=== PATIENT | male | born 1960 | race Caucasian/White ===

== ENCOUNTER → 2016-12-08 | Outpatient (REF) | payer BC ==
[2016-12-08 08:33] LABS: ALBUMIN 3.4 GM/DL (3.2-5.2); ALBUMIN/GLOBULIN RATIO 1.36 (1.00-1.93); ALKALINE PHOSPHATASE 77 U/L (45-117); ALT/SGPT 32 U/L (12-78); ANION GAP 5 MEQ/L (8-16); AST/SGOT 17 U/L (15-37); BILIRUBIN,TOTAL 0.4 MG/DL (0.2-1.0); BLOOD UREA NITROGEN 14 MG/DL (7-18); CALCIUM LEVEL 8.3 MG/DL (8.5-10.1); CARBON DIOXIDE LEVEL 32 MEQ/L (21-32); CHLORIDE LEVEL 105 MEQ/L (98-107); CHOLESTEROL LEVEL 141 MG/DL (<200); CREATININE FOR GFR 1.01 MG/DL (0.70-1.30); GLOMERULAR FILTRATION RATE > 60.0 (>56); GLUCOSE, FASTING 106 MG/DL (70-105); POTASSIUM SERUM 4.4 MEQ/L (3.5-5.1); SODIUM LEVEL 142 MEQ/L (136-145); TOTAL PROTEIN 5.9 GM/DL (6.4-8.2); TRIGLYCERIDES LEVEL 61 MG/DL (<150)
[2016-12-08 08:37] LABS: MEAN CORPUSCULAR HEMOGLOBIN 31.6 pg (27.0-33.0); MEAN CORPUSCULAR HGB CONC 34.8 g/dl (32.0-36.5); MEAN CORPUSCULAR VOLUME 90.8 fl (80.0-96.0); RED CELL DISTRIBUTION WIDTH 12.5 % (11.5-14.5); WHITE BLOOD COUNT 4.6 K/mm3 (4.0-10.0)
== END ==
LOC: M LAB REF 07:48
PROVIDERS: ATTEND Internal Medicine Endocrinology, Diabetes & Metabolism
DX: E10.65 Type 1 diabetes mellitus with hyperglycemia (principal); E55.9 Vitamin D deficiency, unspecified

== ENCOUNTER → 2017-01-04 | Outpatient (REF) | payer BC ==
[2017-01-04 10:52] LABS: VITAMIN B12 LEVEL 1958 PG/ML (247-911)
== END ==
LOC: M LAB REF 09:11
PROVIDERS: ATTEND Psychiatry & Neurology Neurology
DX: G62.9 Polyneuropathy, unspecified (principal)

== ENCOUNTER → 2017-05-21 | Outpatient (REF) | LOC: M LAB REF 13:14 | PROVIDERS: ATTEND Nurse Practitioner Adult Health | DX: Z01.84 Encounter for antibody response examination (principal) ==

== ENCOUNTER → 2018-05-05 | Outpatient (REF) | payer BC ==
[2018-05-05 09:42] LABS: BASO # 0.1 10^3/uL (0.0-0.2); EOS # 0.2 10^3/uL (0.0-0.50); EOS % 3.4 % (0.0-3.0); HEMATOCRIT 46.1 % (42.0-52.0); HEMOGLOBIN 15.7 g/dl (13.5-17.5); IMMATURE GRANULOCYTE % 0.2 % (0-3.0); LYMPH # 1.6 10^3/uL (1.5-4.5); LYMPH % 31.9 % (24.0-44.0); MEAN CORPUSCULAR HEMOGLOBIN 30.1 pg (27.0-33.0); MEAN CORPUSCULAR HGB CONC 34.1 g/dl (32.0-36.5); MEAN CORPUSCULAR VOLUME 88.5 fl (80.0-96.0); MONO # 0.5 10^3/uL (0.0-0.8); MONO % 9.2 % (0.0-5.0); NEUTROPHILS # 2.7 10^3/uL (1.8-7.7); NEUTROPHILS % 54.3 % (36.0-66.0); PLATELET COUNT, AUTOMATED 306 10^3/uL (150-450); RED BLOOD COUNT 5.21 10^6/uL (4.30-6.10); RED CELL DISTRIBUTION WIDTH 12.1 % (11.5-14.5)
[2018-05-05 09:54] LABS: ALBUMIN 3.7 GM/DL (3.2-5.2); ALBUMIN/GLOBULIN RATIO 1.42 (1.00-1.93); ALKALINE PHOSPHATASE 78 U/L (45-117); ALT/SGPT 34 U/L (12-78); ANION GAP 4 MEQ/L (8-16); AST/SGOT 18 U/L (7-37); BILIRUBIN,TOTAL 0.5 MG/DL (0.2-1.0); BLOOD UREA NITROGEN 14 MG/DL (7-18); CALCIUM LEVEL 8.6 MG/DL (8.5-10.1); CARBON DIOXIDE LEVEL 33 MEQ/L (21-32); CHLORIDE LEVEL 103 MEQ/L (98-107); CHOLESTEROL LEVEL 154 MG/DL (<200); CHOLESTEROL RISK RATIO 2.655 (<5); CREATININE FOR GFR 0.96 MG/DL (0.70-1.30); FREE T4 1.03 NG/DL (0.76-1.46); GLOMERULAR FILTRATION RATE > 60.0 (>56); GLUCOSE, FASTING 120 MG/DL (70-100); HDL CHOLESTEROL 58 MG/DL (>40); LDL CHOLESTEROL 79 MG/DL (<100); NON-HDL-C 96 MG/DL; POTASSIUM SERUM 4.2 MEQ/L (3.5-5.1); SODIUM LEVEL 140 MEQ/L (136-145); TOTAL PROTEIN 6.3 GM/DL (6.4-8.2); TRIGLYCERIDES LEVEL 84 MG/DL (<150)
[2018-05-05 10:18] LABS: CREATININE, URINE 92.2 MG/DL; MAU/CREAT RATIO 7.5 MCG/MG (0.0-30.0)
[2018-05-05 11:37] LABS: TOTAL 25(OH) VITAMIN D 36.5 NG/ML (30.0-100.0)
[2018-05-05 11:38] LABS: VITAMIN B12 LEVEL 1009 PG/ML (247-911)
== END ==
LOC: M LAB REF 09:07
DX: E10.65 Type 1 diabetes mellitus with hyperglycemia (principal)

== ENCOUNTER → 2018-06-24 | Outpatient (REF) | payer BC ==
[2018-06-24 11:19] LABS: THYROID STIMULATING HORMONE 2.41 uIU/ML (0.358-3.740)
== END ==
LOC: M LAB REF 10:14
PROVIDERS: ATTEND Psychiatry & Neurology Neurology
DX: G62.9 Polyneuropathy, unspecified (principal)

== ENCOUNTER → 2018-08-13 | Outpatient (CLI) | payer BC ==
[~2018-08-13] MED LIST: ALPH600C PO; FOLI400T PO; INSUH10VL SC; LAMO150T2 PO; PROAAER10 INH; REST0.057 OU; ROSU10TA5 PO; VITA200016 PO; VITATAB11 PO
== END ==
LOC: M SLEEP 20:00
PROVIDERS: ATTEND Internal Medicine Pulmonary Disease
DX: G47.30 Sleep apnea, unspecified (principal)

== ENCOUNTER 2018-08-29 06:50 | Day surgery (SDC) | payer BC ==
[~2018-08-29] VITALS: Ht 170.2 cm; Wt 64.4 kg
[2018-08-29] MEDS ORDERED: PROPOFOL 200 MG/20 ML VIAL As Ordered ONE (07:30)
[2018-08-29] MEDS ORDERED: NS 1,000 ML IV ONE (07:30)
[2018-08-29] MEDS ORDERED: LIDOCAINE 2% INJ 100 MG/5 ML SDV (FOR ANES.) As Ordered ONE (07:30)
--- NOTE | 2018-08-29 08:30 | ROOR ---
Patient Name: Isaac Merchant Procedure Date: 08/29/2018 8:02 AM Date of : 1960 Age: 58 Room: [facility] Gender: Male Note Status: Finalized Procedure: Colonoscopy Indications: High risk colon cancer surveillance: Personal history of colonic polyps Providers: Duarte HANKINS MD Referring MD: Zac Franco MD Requesting Provider: Medicines: Monitored Anesthesia Care Complications: No immediate complications. Procedure: Pre-Anesthesia Assessment: - The heart rate, respiratory rate, oxygen saturations, blood pressure, adequacy of pulmonary ventilation, and response to care were monitored throughout the procedure. The Colonoscope was introduced through the anus and advanced to the terminal ileum, with identification of the appendiceal orifice and IC valve. The colonoscopy was performed without difficulty. The patient tolerated the procedure well. The quality of the bowel preparation was good. Findings: The perianal and digital rectal examinations were normal. Small Internal Hemorrhoids. The entire examined colon appeared normal on direct and retroflexion views. Impression: - Small Internal Hemorrhoids. - The entire examined colon is normal on direct and retroflexion views. - No specimens collected. Recommendation: - Repeat colonoscopy in 10 years for screening purposes. Duarte Hankins MD Duarte HANKINS MD 08/29/2018 8:29:52 AM This report has been signed electronically. Number of Addenda: 0 Note Initiated On: 08/29/2018 8:02 AM Estimated Blood Loss: Estimated blood loss: none.
[2018-08-29 09:00] VITALS: BP 140/85
== END 2018-08-29 09:25 | disposition home or self-care (01) ==
LOC: M OPP 06:50
PROVIDERS: ATTEND Internal Medicine Gastroenterology
DX: Z86.010 Personal history of colon polyps (principal); K64.8 Other hemorrhoids; E11.9 Type 2 diabetes mellitus without complications; G47.30 Sleep apnea, unspecified; Z88.0 Allergy status to penicillin; Z79.4 Long term (current) use of insulin; Z79.899 Other long term (current) drug therapy

== ENCOUNTER → 2019-01-02 | Outpatient (REF) | payer BC ==
[~2019-01-02] MED LIST changes: -ROSU10TA5 PO; +ROSU10TA6 PO
[2019-01-02 17:22] LABS: INR 0.99; PROTHROMBIN TIME 12.8 SECONDS (11.8-14.0)
[2019-01-02 17:24] LABS: PARTIAL THROMBOPLASTIN TIME 33.7 SECONDS (25.0-38.4)
== END ==
LOC: M LABDRAW1 14:48
PROVIDERS: ATTEND Psychiatry & Neurology Neurology
DX: Z79.899 Other long term (current) drug therapy (principal)

== ENCOUNTER 2019-05-08 09:47 | Outpatient (CLI) | payer BC ==
[~2019-05-08] VITALS: Ht 170.2 cm; Wt 68.0 kg
[2019-05-08 10:00] VITALS: BP 136/69
[2019-05-08] MEDS ORDERED: IMMUNE GLOBULIN 10% 20 GM in IV 1 EA IV ONE (10:30)
[2019-05-08] MEDS ORDERED: IMMUNE GLOBULIN 10% 5 GM in IV 1 EA IV ONE (10:30)
[2019-05-08] MEDS ORDERED: LANTINJ4 SC (10:33)
[2019-05-08 11:15] VITALS: BP 120/66
[2019-05-08 11:55] VITALS: BP 126/66
[2019-05-08 12:20] VITALS: BP 119/65
[2019-05-08 14:00] VITALS: BP 109/53
[2019-05-09] MEDS ORDERED: KEPP250T5 PO (08:34)
== END 2019-05-08 14:00 | disposition home or self-care (01) ==
LOC: M INFU 09:47
PROVIDERS: ATTEND Psychiatry & Neurology Neurology
DX: G61.81 Chronic inflammatory demyelinating polyneuritis (principal); Z88.0 Allergy status to penicillin; Z88.5 Allergy status to narcotic agent
CPT/HCPCS: 96365; 96366; J1459

== ENCOUNTER 2019-05-09 08:00 | Outpatient (CLI) | payer BC ==
[2019-05-09] VITALS (7 sets, daily range): BP systolic 126–155; BP diastolic 63–78
[~2019-05-09] VITALS: Ht 170.2 cm; Wt 68.0 kg
[~2019-05-09 08:00] MED LIST changes: +IMMUNE GLOBULIN 10% 20 GM in IV 1 EA IV ONE; +IMMUNE GLOBULIN 10% 5 GM in IV 1 EA IV ONE; +LANTINJ4 SC
[2019-05-09] MEDS ORDERED: KEPP250T5 PO (08:34)
== END 2019-05-09 11:30 | disposition home or self-care (01) ==
LOC: M INFU 08:00
PROVIDERS: ATTEND Psychiatry & Neurology Neurology
DX: G61.81 Chronic inflammatory demyelinating polyneuritis (principal)
CPT/HCPCS: 96365; 96366; J1459

== ENCOUNTER 2019-05-10 09:37 | Outpatient (CLI) | payer BC ==
[~2019-05-10 09:37] MED LIST changes: -IMMUNE GLOBULIN 10% 20 GM in IV 1 EA IV ONE; -IMMUNE GLOBULIN 10% 5 GM in IV 1 EA IV ONE; +KEPP250T5 PO
[2019-05-10 09:40] VITALS: BP 136/72
[2019-05-10] MEDS ORDERED: IMMUNE GLOBULIN 10% 20 GM in IV 1 EA IV ONE (10:00)
[2019-05-10] MEDS ORDERED: IMMUNE GLOBULIN 10% 5 GM in IV 1 EA IV ONE (10:00)
[2019-05-10 10:30] VITALS: BP 131/73
[2019-05-10 11:00] VITALS: BP 125/60
[2019-05-10 11:30] VITALS: BP 134/69
[2019-05-10 12:30] VITALS: BP 126/68
[2019-05-10 12:51] VITALS: BP 118/59
[2019-05-11] MEDS ORDERED: IMMUNE GLOBULIN 10% 5 GM in IV 1 EA IV ONE (10:15)
== END 2019-05-10 13:00 | disposition home or self-care (01) ==
LOC: M INFU 09:37
PROVIDERS: ATTEND Psychiatry & Neurology Neurology
DX: G61.81 Chronic inflammatory demyelinating polyneuritis (principal)
CPT/HCPCS: 96365; 96366; J1459

== ENCOUNTER 2019-05-11 09:44 | Outpatient (CLI) | payer BC ==
[~2019-05-11] VITALS: Ht 170.2 cm; Wt 68.0 kg
[~2019-05-11 09:44] MED LIST changes: -LAMO150T2 PO; +LAMO150T3 PO
[2019-05-11 09:45] VITALS: BP 140/70
[2019-05-11] MEDS ORDERED: IMMUNE GLOBULIN 10% 5 GM in IV 1 EA IV ONE (10:15)
[2019-05-11] MEDS ORDERED: IMMUNE GLOBULIN 10% 20 GM in IV 1 EA IV ONE (10:15)
[2019-05-11 10:45] VITALS: BP 138/70
[2019-05-11 11:15] VITALS: BP 129/75
[2019-05-11 11:45] VITALS: BP 126/74
[2019-05-11 13:00] VITALS: BP 133/62
== END 2019-05-11 13:00 | disposition home or self-care (01) ==
LOC: M INFU 09:44
PROVIDERS: ATTEND Psychiatry & Neurology Neurology
DX: G61.81 Chronic inflammatory demyelinating polyneuritis (principal)
CPT/HCPCS: 96365; 96366; J1459

== ENCOUNTER 2019-05-12 10:09 | Outpatient (CLI) | payer BC ==
[2019-05-12] VITALS (7 sets, daily range): BP systolic 120–171; BP diastolic 67–82
[~2019-05-12] VITALS: Ht 170.2 cm; Wt 68.0 kg
[~2019-05-12 10:09] MED LIST changes: +IMMUNE GLOBULIN 10% 20 GM in IV 1 EA IV ONE; +IMMUNE GLOBULIN 10% 5 GM in IV 1 EA IV ONE; +LAMO150T2 PO; -LAMO150T3 PO
== END 2019-05-12 13:45 | disposition home or self-care (01) ==
LOC: M INFU 10:09
PROVIDERS: ATTEND Psychiatry & Neurology Neurology
DX: G61.81 Chronic inflammatory demyelinating polyneuritis (principal)
CPT/HCPCS: 96365; 96366; J1459

== ENCOUNTER → 2019-08-09 | Outpatient (REF) | payer BC ==
[~2019-08-09] MED LIST changes: -IMMUNE GLOBULIN 10% 20 GM in IV 1 EA IV ONE; -IMMUNE GLOBULIN 10% 5 GM in IV 1 EA IV ONE; -LAMO150T2 PO; +LAMO150T3 PO
[2019-08-09 06:07] LABS: HEMATOCRIT 45.7 % (42.0-52.0); HEMOGLOBIN 15.6 g/dl (13.5-17.5); MEAN CORPUSCULAR HEMOGLOBIN 30.2 pg (27.0-33.0); MEAN CORPUSCULAR HGB CONC 34.1 g/dl (32.0-36.5); MEAN CORPUSCULAR VOLUME 88.6 fl (80.0-96.0); PLATELET COUNT, AUTOMATED 269 10^3/uL (150-450); RED BLOOD COUNT 5.16 10^6/uL (4.30-6.10); WHITE BLOOD COUNT 4.9 10^3/uL (4.0-10.0)
[2019-08-09 06:45] LABS: ALBUMIN 3.7 GM/DL (3.2-5.2); ALT/SGPT 44 U/L (12-78); BILIRUBIN,TOTAL 0.4 MG/DL (0.2-1.0); BLOOD UREA NITROGEN 16 MG/DL (7-18); CALCIUM LEVEL 8.6 MG/DL (8.8-10.2); CARBON DIOXIDE LEVEL 32 MEQ/L (21-32); CHLORIDE LEVEL 106 MEQ/L (98-107); CHOLESTEROL LEVEL 155 MG/DL (<200); CHOLESTEROL RISK RATIO 2.348 (<5); CREATININE FOR GFR 0.93 MG/DL (0.70-1.30); GLOMERULAR FILTRATION RATE > 60.0 (>49); GLUCOSE, FASTING 112 MG/DL (70-100); HDL CHOLESTEROL 66 MG/DL (>40); LDL CHOLESTEROL 75 MG/DL (<100); MALB URINE SIEMENS 6.9 MG/L; MAU/CREAT RATIO 6.6 MCG/MG (0.0-30.0); NON-HDL-C 89 MG/DL; POTASSIUM SERUM 4.4 MEQ/L (3.5-5.1); SODIUM LEVEL 143 MEQ/L (136-145); TOTAL PROTEIN 6.3 GM/DL (6.4-8.2); TRIGLYCERIDES LEVEL 68 MG/DL (<150)
[2019-08-09 08:50] LABS: TOTAL 25(OH) VITAMIN D 39.9 NG/ML (30.0-100.0)
== END ==
LOC: M SFHCPLAZ 10:27
PROVIDERS: ATTEND Internal Medicine
DX: E78.00 Pure hypercholesterolemia, unspecified (principal); E10.9 Type 1 diabetes mellitus without complications; E55.9 Vitamin D deficiency, unspecified; Z79.899 Other long term (current) drug therapy

== ENCOUNTER 2019-08-24 13:31 | Emergency (ER) | payer BC ==
[~2019-08-24] VITALS: Ht 170.2 cm; Wt 70.2 kg
--- NOTE | 2019-08-24 14:29 | REP ---
LEFT SECOND DIGIT: Four views of the left second digit performed. On one of the oblique views there is cortical irregularity of the distal phalanx which could possibly represent an old or new nondisplaced fracture. Otherwise no acute fracture or dislocation is seen. There is mild joint space narrowing and spurring at the distal interphalangeal joint. There are mild vascular calcifications seen in the soft tissues. Electronically Signed by Brandon Cheney MD 08/25/2019 04:43 P
[2019-08-24] MEDS ORDERED: BACT800T5 PO (15:15)
[2019-08-24 15:21] VITALS: BP 141/77
== END 2019-08-24 15:23 | disposition home or self-care (01) ==
LOC: M ED 13:31
DX: S69.92XA Unspecified injury of left wrist, hand and finger(s), initial encounter (principal); S62.631D Displaced fracture of distal phalanx of left index finger, subsequent encounter for fracture with routine healing; W29.4XXA Contact with nail gun, initial encounter; Y92.019 Unspecified place in single-family (private) house as the place of occurrence of the external cause; M25.742 Osteophyte, left hand; M19.042 Primary osteoarthritis, left hand; E10.9 Type 1 diabetes mellitus without complications; E78.5 Hyperlipidemia, unspecified; Z88.0 Allergy status to penicillin; Z88.8 Allergy status to other drugs, medicaments and biological substances; Z79.4 Long term (current) use of insulin; Z79.899 Other long term (current) drug therapy

== ENCOUNTER → 2019-10-02 | Outpatient (REF) | payer BC ==
[~2019-10-02] MED LIST changes: +BACT800T5 PO
[2019-10-02 17:45] LABS: C REACTIVE PROTEIN QUANTITATIV < 0.30 MG/DL (0.00-0.30); RHEUMATOID FACTOR QUANT < 10.0 IU/ML (<15.0); URIC ACID 4.2 MG/DL (3.5-7.2)
== END ==
LOC: M LAB REF 16:53
PROVIDERS: ATTEND Internal Medicine
DX: M79.641 Pain in right hand (principal)

== ENCOUNTER → 2019-11-21 | Outpatient (CLI) | payer BC ==
--- NOTE | 2019-11-29 08:16 | SLEEPCENT ---
DATE OF STUDY: 11/21/2019 ORDERED BY: Oracio Sahu Nocturnal polysomnography was performed for the titration of pressure therapy in this patient with obstructive sleep apnea and apnea-hypopnea index of 34.8. For testing, the patient was fit with a ResMed F20 Air Touch full face mask of medium size, 5 cm of water pressure was applied to the circuit and the lights were extinguished. 9 hours of data were reviewed. There were 375 minutes of sleep identified. Sleep latency was mildly prolonged at 16.5 minutes. REM latency was normal at 80 minutes. Sleep architecture improved with optimal pressure therapy. Some fragmentation was seen later in the study. Overall sleep efficiency was 70.4%. The patient's electrocardiogram showed a sinus rhythm with an average heart rate of 63 beats per minute. Electroencephalogram (EEG) showed normal waveforms for awake and sleep. Respiratory events were found best palliated with CPAP at a pressure of +10. There was minimal limb activity and remaining measures of sleep physiology were normal. IMPRESSION: Obstructive sleep apnea syndrome (G47.33). RECOMMENDATION: Nightly use of pressure therapy at 10 cm of water.
== END ==
LOC: M SLEEP 20:00
PROVIDERS: ATTEND Physician Assistant
DX: G47.33 Obstructive sleep apnea (adult) (pediatric) (principal)

== ENCOUNTER → 2020-02-15 | Outpatient (REF) | payer BC ==
[2020-02-15 08:24] LABS: ALBUMIN 3.5 GM/DL (3.2-5.2); ALT/SGPT 39 U/L (12-78); BILIRUBIN,TOTAL 0.4 MG/DL (0.2-1.0); BLOOD UREA NITROGEN 17 MG/DL (7-18); CALCIUM LEVEL 8.6 MG/DL (8.8-10.2); CARBON DIOXIDE LEVEL 34 MEQ/L (21-32); CHLORIDE LEVEL 107 MEQ/L (98-107); CREATININE FOR GFR 0.95 MG/DL (0.70-1.30); GLOMERULAR FILTRATION RATE > 60.0 (>49); GLUCOSE, FASTING 110 MG/DL (70-100); POTASSIUM SERUM 4.4 MEQ/L (3.5-5.1); SODIUM LEVEL 143 MEQ/L (136-145)
[2020-02-15 11:20] LABS: HEMOGLOBIN A1c 7.4 %
== END ==
LOC: M LAB REF 05:30
PROVIDERS: ATTEND Internal Medicine
DX: E10.9 Type 1 diabetes mellitus without complications (principal)

== ENCOUNTER → 2020-02-15 | Outpatient (REF) | payer BC ==
[2020-02-22 11:08] LABS: LAMOTRIGINE (LAMICTAL) 12.4 ug/mL (2.0-20.0)
== END ==
LOC: M LAB REF 05:30
PROVIDERS: ATTEND Psychiatry & Neurology Neurology
DX: G61.81 Chronic inflammatory demyelinating polyneuritis (principal)

== ENCOUNTER 2020-04-10 08:07 | Outpatient (CLI) | payer BC ==
[~2020-04-10] VITALS: Ht 170.2 cm; Wt 64.5 kg
[2020-04-10 08:30] VITALS: BP 140/66
[2020-04-10] MEDS ORDERED: IMMUNE GLOBULIN 10% 20 GM in IV 1 EA IV ONE (08:30)
[2020-04-10 09:05] VITALS: BP 132/71
[2020-04-10 10:05] VITALS: BP 130/60
[2020-04-10 11:05] VITALS: BP 128/78
[2020-04-10 12:00] VITALS: BP 135/74
== END 2020-04-10 12:15 | disposition home or self-care (01) ==
LOC: M INFU 08:07
PROVIDERS: ATTEND Psychiatry & Neurology Neurology
DX: G61.81 Chronic inflammatory demyelinating polyneuritis (principal); Z88.0 Allergy status to penicillin
CPT/HCPCS: 96365; 96366; J1459

== ENCOUNTER 2020-04-11 08:10 | Outpatient (CLI) | payer BC ==
[2020-04-11 08:10] VITALS: BP 137/71
[2020-04-11] MEDS ORDERED: IMMUNE GLOBULIN 10% 20 GM in IV 1 EA IV ONE (08:15)
[2020-04-11 09:00] VITALS: BP 131/68
[2020-04-11 09:30] VITALS: BP 111/63
[2020-04-11 10:00] VITALS: BP 115/60
[2020-04-11 12:10] VITALS: BP 153/82
== END 2020-04-11 12:10 | disposition home or self-care (01) ==
LOC: M INFU 08:10
PROVIDERS: ATTEND Psychiatry & Neurology Neurology
DX: G61.81 Chronic inflammatory demyelinating polyneuritis (principal)
CPT/HCPCS: 96365; 96366; J1459

== ENCOUNTER 2020-04-12 08:02 | Outpatient (CLI) | payer BC ==
[~2020-04-12] VITALS: Ht 170.2 cm; Wt 64.5 kg
[2020-04-12 08:11] VITALS: BP 146/72
[2020-04-12] MEDS ORDERED: IMMUNE GLOBULIN 10% 20 GM in IV 1 EA IV ONE (08:30)
[2020-04-12 09:00] VITALS: BP 132/73
[2020-04-12 09:30] VITALS: BP 134/64
[2020-04-12 10:30] VITALS: BP 128/66
[2020-04-12 11:30] VITALS: BP 146/74
[2020-04-12 12:25] VITALS: BP 136/60
== END 2020-04-12 12:25 | disposition home or self-care (01) ==
LOC: M INFU 08:02
PROVIDERS: ATTEND Psychiatry & Neurology Neurology
DX: G61.81 Chronic inflammatory demyelinating polyneuritis (principal)
CPT/HCPCS: 96365; 96366; J1459

== ENCOUNTER → 2020-05-22 | Outpatient (CLI) | payer BC ==
--- NOTE | 2020-05-23 04:03 | REP ---
INDICATION: PAIN IN RT HAND USARTUB COMPARISON: None. TECHNIQUE: Real time cheney scale and color Doppler evaluation of the bilateral upper extremity arterial vasculature using linear high frequency transducer. FINDINGS: Cheney scale and color images demonstrate mild atheromatous plaquing primarily extending from the forearm to the wrist bilaterally with normal triphasic and biphasic wave patterns and no obvious area of stenosis or occlusion. Peak systolic velocities (cm/sec) Subclavian artery: Right 136/triphasic; Left 149/biphasic Axillary artery: Right 81/triphasic; Left 110/biphasic Brachial artery (proximal): Right 125/triphasic; Left 124/biphasic Brachial artery (mid): Right 125/triphasic; Left 120/biphasic Radial artery (distal humerus): Right 104/triphasic; Left 75/biphasic Radial artery (proximal forearm): Right 106/triphasic; Left 77/triphasic Radial artery (wrist level): Right 74/triphasic; Left 70/triphasic Ulnar artery (distal humerus): Right 106/triphasic; Left 87/triphasic Ulnar artery (proximal forearm): Right 122/triphasic; Left thick 61/triphasic Ulnar artery (wrist level): Right 102/triphasic; Left 88/triphasic IMPRESSION: Mild atheromatous plaquing noted bilaterally without focal area of stenosis or occlusion identified. <Electronically signed by Oracio Jerome > 05/23/20 [id number]
== END ==
LOC: M RAD 12:08
PROVIDERS: ATTEND Physician Assistant
DX: M79.641 Pain in right hand (principal); I70.208 Unspecified atherosclerosis of native arteries of extremities, other extremity

== ENCOUNTER → 2020-08-15 | Outpatient (REF) | payer BC ==
[~2020-08-15] MED LIST changes: -FOLI400T PO; +FOLI400T13 PO
[2020-08-15 09:46] LABS: HEMOGLOBIN A1c 7.7 %
[2020-08-15 09:52] LABS: ALBUMIN 3.6 GM/DL (3.2-5.2); ALT/SGPT 45 U/L (12-78); BILIRUBIN,TOTAL 0.5 MG/DL (0.2-1.0); BLOOD UREA NITROGEN 17 MG/DL (7-18); CALCIUM LEVEL 8.8 MG/DL (8.8-10.2); CARBON DIOXIDE LEVEL 31 MEQ/L (21-32); CHLORIDE LEVEL 107 MEQ/L (98-107); CHOLESTEROL LEVEL 146 MG/DL (<200); CHOLESTEROL RISK RATIO 2.561 (<5); CREATININE FOR GFR 0.99 MG/DL (0.70-1.30); GLOMERULAR FILTRATION RATE > 60.0 (>49); GLUCOSE, FASTING 53 MG/DL (70-100); HDL CHOLESTEROL 57 MG/DL (>40); LDL CHOLESTEROL 74 MG/DL (<100); NON-HDL-C 89 MG/DL; POTASSIUM SERUM 4.1 MEQ/L (3.5-5.1); SODIUM LEVEL 142 MEQ/L (136-145); TOTAL PROTEIN 5.9 GM/DL (6.4-8.2); TRIGLYCERIDES LEVEL 77 MG/DL (<150)
[2020-08-15 10:35] LABS: HEPATITIS C VIRUS ABY INDEX < 0.0 INDEX (<0.8)
== END ==
LOC: M LAB REF 09:05
PROVIDERS: ATTEND Internal Medicine
DX: E10.9 Type 1 diabetes mellitus without complications (principal); E78.00 Pure hypercholesterolemia, unspecified; Z11.59 Encounter for screening for other viral diseases; Z12.5 Encounter for screening for malignant neoplasm of prostate
CPT/HCPCS: 80053; 80061; 83036; 86803; G0103

== ENCOUNTER → 2021-01-21 | Outpatient (REF) | payer BC ==
[2021-01-23 19:07] LABS: LAMOTRIGINE (LAMICTAL) 10.5 ug/mL (2.0-20.0); LEVETIRACETAM (KEPPRA) 1.4 ug/mL (10.0-40.0)
== END ==
LOC: M LAB REF 09:20
PROVIDERS: ATTEND Psychiatry & Neurology Neurology
DX: Z79.899 Other long term (current) drug therapy (principal); G25.81 Restless legs syndrome

== ENCOUNTER → 2021-08-07 | Outpatient (REF) | payer BC ==
[2021-08-07 10:01] LABS: BASO # 0.1 10^3/uL (0.0-0.2); BASO % 1.2 % (0.0-1.0); EOS # 0.2 10^3/uL (0.0-0.5); EOS % 2.6 % (0.0-3.0); HEMATOCRIT 47.2 % (42.0-52.0); HEMOGLOBIN 15.9 g/dl (13.5-17.5); LYMPH # 2.1 10^3/uL (1.5-5.0); LYMPH % 36.2 % (24.0-44.0); MEAN CORPUSCULAR HEMOGLOBIN 30.5 pg (27.0-33.0); MEAN CORPUSCULAR HGB CONC 33.7 g/dl (32.0-36.5); MEAN CORPUSCULAR VOLUME 90.6 fl (80.0-96.0); MONO # 0.6 10^3/uL (0.0-0.8); MONO % 9.9 % (2.0-8.0); NEUTROPHILS # 2.9 10^3/uL (1.5-8.5); NEUTROPHILS % 49.9 % (36.0-66.0); PLATELET COUNT, AUTOMATED 300 10^3/uL (150-450); RED BLOOD COUNT 5.21 10^6/uL (4.30-6.10); WHITE BLOOD COUNT 5.9 10^3/uL (4.0-10.0)
[2021-08-07 10:45] LABS: ALBUMIN 3.8 GM/DL (3.2-5.2); ALT/SGPT 51 U/L (12-78); BILIRUBIN,TOTAL 0.6 MG/DL (0.2-1.0); BLOOD UREA NITROGEN 15 MG/DL (7-18); CALCIUM LEVEL 9.1 MG/DL (8.8-10.2); CARBON DIOXIDE LEVEL 30 MEQ/L (21-32); CHLORIDE LEVEL 106 MEQ/L (98-107); CHOLESTEROL LEVEL 174 MG/DL (<200); CHOLESTEROL RISK RATIO 2.383 (<5); CREATININE FOR GFR 0.96 MG/DL (0.70-1.30); GLOMERULAR FILTRATION RATE > 60.0 (>49); GLUCOSE, FASTING 101 MG/DL (70-100); HDL CHOLESTEROL 73 MG/DL (>40); LDL CHOLESTEROL 86 MG/DL (<100); NON-HDL-C 101 MG/DL; POTASSIUM SERUM 4.4 MEQ/L (3.5-5.1); SODIUM LEVEL 143 MEQ/L (136-145); TOTAL PROTEIN 6.3 GM/DL (6.4-8.2); TRIGLYCERIDES LEVEL 76 MG/DL (<150)
[2021-08-07 11:00] LABS: CREATININE, URINE 76.2 MG/DL; MALB URINE SIEMENS < 5.0 MG/L; MAU/CREAT RATIO 6.5 MCG/MG (0.0-30.0)
== END ==
LOC: M LAB REF 09:15
PROVIDERS: ATTEND Internal Medicine
DX: E10.9 Type 1 diabetes mellitus without complications (principal); E78.00 Pure hypercholesterolemia, unspecified; Z86.010 Personal history of colon polyps

== ENCOUNTER 2021-12-01 07:36 | Outpatient (CLI) | payer BC ==
[~2021-12-01] VITALS: Ht 170.2 cm; Wt 63.5 kg
[~2021-12-01 07:36] MED LIST changes: +ALBUTEROL SULFATE 2.5 MG/0.5 ML INH NEB SOLN INH PRN; +EPINEPHrine INJ 1 MG/ML 1ML AMP IM PRN; +diphenhydrAMINE 50MG/ML VIAL (J1200) IV PRN; +methylPREDNISolone 125MG 2ML VIAL IV PRN
[2021-12-01] MEDS ORDERED: ACETAMINOPHEN TAB 650MG DOSE (2X325MG) PO ONE (07:55)
[2021-12-01] MEDS ORDERED: methylPREDNISolone 125MG 2ML VIAL IV ONE ×2 (07:55→08:15)
[2021-12-01] MEDS ORDERED: IMMUNE GLOBULIN 10% 20 GM in IV 1 EA IV ONE (07:55)
[2021-12-01] MEDS ORDERED: NS 1,000 ML IV SCH (07:55)
[2021-12-01] MEDS ORDERED: diphenhydrAMINE 50MG/ML VIAL (J1200) IV ONE (07:55)
[2021-12-01 07:57] VITALS: BP 157/76
[2021-12-01 08:40] VITALS: BP 145/67
[2021-12-01 09:10] VITALS: BP 134/69
[2021-12-01 09:40] VITALS: BP 128/67
[2021-12-01 11:03] VITALS: BP 131/77
== END 2021-12-01 11:10 | disposition home or self-care (01) ==
LOC: M INFU 07:36
PROVIDERS: ATTEND Psychiatry & Neurology Neurology
DX: G61.81 Chronic inflammatory demyelinating polyneuritis (principal); Z88.0 Allergy status to penicillin; Z88.8 Allergy status to other drugs, medicaments and biological substances
CPT/HCPCS: 96365; 96366; J1459

== ENCOUNTER 2021-12-02 07:38 | Outpatient (CLI) | payer BC ==
[~2021-12-02] VITALS: Ht 170.2 cm; Wt 63.5 kg
[~2021-12-02 07:38] MED LIST changes: +ACETAMINOPHEN TAB 650MG DOSE (2X325MG) PO ONE; +IMMUNE GLOBULIN 10% 20 GM in IV 1 EA IV ONE; +diphenhydrAMINE 50MG/ML VIAL (J1200) IV ONE; +methylPREDNISolone 125MG 2ML VIAL IV ONE
[2021-12-02 07:54] VITALS: BP 197/81
[2021-12-02 08:30] VITALS: BP 143/74
[2021-12-02 09:00] VITALS: BP 129/71
[2021-12-02 10:27] VITALS: BP 164/77
== END 2021-12-02 10:30 | disposition home or self-care (01) ==
LOC: M INFU 07:38
PROVIDERS: ATTEND Psychiatry & Neurology Neurology
DX: G61.81 Chronic inflammatory demyelinating polyneuritis (principal); Z88.0 Allergy status to penicillin; Z88.5 Allergy status to narcotic agent
CPT/HCPCS: 96365; 96366; J1459

== ENCOUNTER 2021-12-03 10:22 | Outpatient (CLI) | payer BC ==
[~2021-12-03] VITALS: Ht 170.2 cm; Wt 63.5 kg
[~2021-12-03 10:22] MED LIST changes: -ACETAMINOPHEN TAB 650MG DOSE (2X325MG) PO ONE; -IMMUNE GLOBULIN 10% 20 GM in IV 1 EA IV ONE; -diphenhydrAMINE 50MG/ML VIAL (J1200) IV ONE; -methylPREDNISolone 125MG 2ML VIAL IV ONE
[2021-12-03] MEDS ORDERED: diphenhydrAMINE 50MG/ML VIAL (J1200) IV ONE (10:30)
[2021-12-03] MEDS ORDERED: ACETAMINOPHEN TAB 650MG DOSE (2X325MG) PO ONE (10:30)
[2021-12-03] MEDS ORDERED: NS 1,000 ML IV SCH (10:30)
[2021-12-03] MEDS ORDERED: methylPREDNISolone 125MG 2ML VIAL IV ONE (10:30)
[2021-12-03] MEDS ORDERED: IMMUNE GLOBULIN 10% 20 GM in IV 1 EA IV ONE (10:30)
[2021-12-03 10:47] VITALS: BP 158/77
[2021-12-03 11:15] VITALS: BP 135/73
[2021-12-03 13:10] VITALS: BP 132/69
== END 2021-12-03 13:15 | disposition home or self-care (01) ==
LOC: M INFU 10:22
PROVIDERS: ATTEND Psychiatry & Neurology Neurology
DX: G61.81 Chronic inflammatory demyelinating polyneuritis (principal); Z88.0 Allergy status to penicillin; Z88.8 Allergy status to other drugs, medicaments and biological substances
CPT/HCPCS: 96365; 96366; J1459

== ENCOUNTER → 2022-02-12 | Outpatient (REF) | payer BC ==
[~2022-02-12] MED LIST changes: -ALBUTEROL SULFATE 2.5 MG/0.5 ML INH NEB SOLN INH PRN; -EPINEPHrine INJ 1 MG/ML 1ML AMP IM PRN; -diphenhydrAMINE 50MG/ML VIAL (J1200) IV PRN; -methylPREDNISolone 125MG 2ML VIAL IV PRN
[2022-02-12 09:44] LABS: BASO # 0.1 10^3/uL (0.0-0.2); BASO % 1.2 % (0.0-1.0); EOS # 0.2 10^3/uL (0.0-0.5); EOS % 3.3 % (0.0-3.0); HEMOGLOBIN 15.4 g/dl (13.5-17.5); LYMPH # 1.7 10^3/uL (1.5-5.0); LYMPH % 33.8 % (24.0-44.0); MEAN CORPUSCULAR VOLUME 88.5 fl (80.0-96.0); MONO # 0.5 10^3/uL (0.0-0.8); MONO % 9.8 % (2.0-8.0); NEUTROPHILS # 2.7 10^3/uL (1.5-8.5); NEUTROPHILS % 51.9 % (36.0-66.0); PLATELET COUNT, AUTOMATED 252 10^3/uL (150-450); RED BLOOD COUNT 4.97 10^6/uL (4.30-6.10); WHITE BLOOD COUNT 5.1 10^3/uL (4.0-10.0)
[2022-02-12 10:21] LABS: ALBUMIN 3.4 GM/DL (3.2-5.2); ALT/SGPT 65 U/L (12-78); BILIRUBIN,TOTAL 0.6 MG/DL (0.2-1.0); BLOOD UREA NITROGEN 15 MG/DL (7-18); CALCIUM LEVEL 8.8 MG/DL (8.8-10.2); CARBON DIOXIDE LEVEL 32 MEQ/L (21-32); CHLORIDE LEVEL 108 MEQ/L (98-107); CREATININE FOR GFR 0.87 MG/DL (0.70-1.30); GLOMERULAR FILTRATION RATE > 60.0 (>49); GLUCOSE, FASTING 117 MG/DL (70-100); POTASSIUM SERUM 4.6 MEQ/L (3.5-5.1); SODIUM LEVEL 142 MEQ/L (136-145); TOTAL PROTEIN 5.9 GM/DL (6.4-8.2)
[2022-02-12 10:24] LABS: HEMOGLOBIN A1c 6.7 %
== END ==
LOC: M LAB REF 09:12
PROVIDERS: ATTEND Internal Medicine Hematology
DX: E10.9 Type 1 diabetes mellitus without complications (principal); Z86.010 Personal history of colon polyps

== ENCOUNTER 2022-03-09 08:26 | Outpatient (CLI) | payer BC ==
[~2022-03-09] VITALS: Ht 157.5 cm; Wt 64.4 kg
[~2022-03-09 08:26] MED LIST changes: +ALBUTEROL SULFATE 2.5 MG/0.5 ML INH NEB SOLN INH PRN; +EPINEPHrine INJ 1 MG/ML 1ML AMP IM PRN; +diphenhydrAMINE 50MG/ML VIAL (J1200) IV PRN; +methylPREDNISolone 125MG 2ML VIAL IV PRN
[2022-03-09] MEDS ORDERED: methylPREDNISolone 125MG 2ML VIAL IV ONE (08:30)
[2022-03-09] MEDS ORDERED: NS 1,000 ML IV SCH (08:30)
[2022-03-09] MEDS ORDERED: diphenhydrAMINE 50MG/ML VIAL (J1200) IV ONE (08:30)
[2022-03-09] MEDS ORDERED: ACETAMINOPHEN TAB 650MG DOSE (2X325MG) PO ONE (08:30)
[2022-03-09] MEDS ORDERED: IMMUNE GLOBULIN 10% 20 GM in IV 1 EA IV ONE (08:30)
[2022-03-09 08:33] VITALS: BP 148/72
[2022-03-09 10:15] VITALS: BP 127/71
[2022-03-09 10:45] VITALS: BP 125/71
[2022-03-09 12:14] VITALS: BP 150/75
== END 2022-03-09 12:15 | disposition home or self-care (01) ==
LOC: M INFU 08:26
PROVIDERS: ATTEND Psychiatry & Neurology Neurology
DX: G61.81 Chronic inflammatory demyelinating polyneuritis (principal); Z88.0 Allergy status to penicillin; Z88.5 Allergy status to narcotic agent
CPT/HCPCS: 96365; 96366; J1200; J1459; J2930

== ENCOUNTER → 2022-03-10 | Outpatient (CLI) | payer BC ==
[~2022-03-10] VITALS: Ht 157.5 cm; Wt 64.4 kg
[~2022-03-10] MED LIST changes: +ACETAMINOPHEN TAB 650MG DOSE (2X325MG) PO ONE; +IMMUNE GLOBULIN 10% 20 GM in IV 1 EA IV ONE; +NS 1,000 ML IV SCH; +diphenhydrAMINE 50MG/ML VIAL (J1200) IV ONE; +methylPREDNISolone 125MG 2ML VIAL IV ONE
[2022-03-10 08:47] VITALS: BP 141/65
[2022-03-10 09:45] VITALS: BP 133/76
[2022-03-10 11:06] VITALS: BP 132/78
== END ==
LOC: M INFU 08:25
PROVIDERS: ATTEND Psychiatry & Neurology Neurology
DX: G61.81 Chronic inflammatory demyelinating polyneuritis (principal); Z88.0 Allergy status to penicillin; Z88.5 Allergy status to narcotic agent
CPT/HCPCS: 96365; 96366; J1459

== ENCOUNTER 2022-03-11 08:10 | Outpatient (CLI) | payer BC ==
[~2022-03-11] VITALS: Ht 157.5 cm; Wt 64.4 kg
[2022-03-11 08:10] VITALS: BP 131/66
[~2022-03-11 08:10] MED LIST changes: -ACETAMINOPHEN TAB 650MG DOSE (2X325MG) PO ONE; -ALBUTEROL SULFATE 2.5 MG/0.5 ML INH NEB SOLN INH PRN; -EPINEPHrine INJ 1 MG/ML 1ML AMP IM PRN; -IMMUNE GLOBULIN 10% 20 GM in IV 1 EA IV ONE; -NS 1,000 ML IV SCH; -diphenhydrAMINE 50MG/ML VIAL (J1200) IV ONE; -diphenhydrAMINE 50MG/ML VIAL (J1200) IV PRN; -methylPREDNISolone 125MG 2ML VIAL IV ONE; -methylPREDNISolone 125MG 2ML VIAL IV PRN
[2022-03-11] MEDS ORDERED: diphenhydrAMINE 50MG/ML VIAL (J1200) IV ONE (08:30)
[2022-03-11] MEDS ORDERED: methylPREDNISolone 125MG 2ML VIAL IV ONE (08:30)
[2022-03-11] MEDS ORDERED: methylPREDNISolone 125MG 2ML VIAL IV PRN (08:30)
[2022-03-11] MEDS ORDERED: EPINEPHrine INJ 1 MG/ML 1ML AMP IM PRN (08:30)
[2022-03-11] MEDS ORDERED: diphenhydrAMINE 50MG/ML VIAL (J1200) IV PRN (08:30)
[2022-03-11] MEDS ORDERED: ACETAMINOPHEN TAB 650MG DOSE (2X325MG) PO ONE (08:30)
[2022-03-11] MEDS ORDERED: ALBUTEROL SULFATE 2.5 MG/0.5 ML INH NEB SOLN INH PRN (08:30)
[2022-03-11] MEDS ORDERED: IMMUNE GLOBULIN 10% 20 GM in IV 1 EA IV ONE (08:30)
[2022-03-11] MEDS ORDERED: NS 1,000 ML IV SCH (08:30)
[2022-03-11 08:50] VITALS: BP 134/72
[2022-03-11 09:20] VITALS: BP 140/66
[2022-03-11 09:50] VITALS: BP 147/71
[2022-03-11 10:57] VITALS: BP 159/77
== END 2022-03-11 11:00 | disposition home or self-care (01) ==
LOC: M INFU 08:10
PROVIDERS: ATTEND Psychiatry & Neurology Neurology
DX: G61.81 Chronic inflammatory demyelinating polyneuritis (principal); Z88.0 Allergy status to penicillin; Z88.5 Allergy status to narcotic agent
CPT/HCPCS: 96365; 96366; J1459

== ENCOUNTER → 2022-04-07 | Outpatient (CLI) | payer MEDICARE | LOC: M LAB 08:37 | PROVIDERS: ATTEND Psychiatry & Neurology Neurology | DX: Z79.899 Other long term (current) drug therapy (principal) ==

== ENCOUNTER 2022-05-11 08:30 | Outpatient (CLI) | payer MEDICARE, BC ==
[~2022-05-11] VITALS: Ht 157.5 cm; Wt 64.4 kg
[~2022-05-11 08:30] MED LIST changes: +ACETAMINOPHEN 650MG PO PRIOR TO INFUSION PO ONE; +ALBUTEROL SULFATE 2.5 MG/0.5 ML INH NEB SOLN INH PRN; +EPINEPHrine INJ 1 MG/ML 1ML AMP IM PRN; +IMMUNE GLOBULIN 10% 20 GM in IV 1 EA IV ONE; +NS 1,000 ML IV SCH; +diphenhydrAMINE 25MG IV PRIOR TO INFUSION IV ONE; +diphenhydrAMINE 50MG/ML VIAL IV PRN; +methylPREDNISolone 125MG 2ML VIAL IV ONE; +methylPREDNISolone 125MG 2ML VIAL IV PRN
[2022-05-11 09:10] VITALS: BP 120/72
[2022-05-11 09:40] VITALS: BP 122/73
[2022-05-11 10:10] VITALS: BP 136/67
[2022-05-11 10:40] VITALS: BP 131/72
[2022-05-11 11:15] VITALS: BP 150/72
== END 2022-05-11 11:15 | disposition home or self-care (01) ==
LOC: M INFU 08:30
PROVIDERS: ATTEND Psychiatry & Neurology Neurology
DX: G61.81 Chronic inflammatory demyelinating polyneuritis (principal); Z88.0 Allergy status to penicillin; Z88.8 Allergy status to other drugs, medicaments and biological substances
CPT/HCPCS: 96365; 96366; J1459

== ENCOUNTER 2022-05-12 08:30 | Outpatient (CLI) | payer MEDICARE, BC ==
[~2022-05-12] VITALS: Ht 157.5 cm; Wt 64.4 kg
[~2022-05-12 08:30] MED LIST changes: -ACETAMINOPHEN 650MG PO PRIOR TO INFUSION PO ONE; +ACETAMINOPHEN TAB 650MG DOSE (2X325MG) PO ONE; -diphenhydrAMINE 25MG IV PRIOR TO INFUSION IV ONE; +diphenhydrAMINE 50MG/ML VIAL IV ONE
[2022-05-12 08:59] VITALS: BP 158/75
[2022-05-12 09:15] VITALS: BP 139/70
[2022-05-12 10:15] VITALS: BP 128/65
[2022-05-12 11:13] VITALS: BP 133/73
== END 2022-05-12 11:15 | disposition home or self-care (01) ==
LOC: M INFU 08:30
PROVIDERS: ATTEND Psychiatry & Neurology Neurology
DX: G61.81 Chronic inflammatory demyelinating polyneuritis (principal); Z88.0 Allergy status to penicillin; Z88.8 Allergy status to other drugs, medicaments and biological substances
CPT/HCPCS: 96365; 96366; J1459

== ENCOUNTER 2022-05-13 08:30 | Outpatient (CLI) | payer MEDICARE, BC ==
[~2022-05-13] VITALS: Ht 157.5 cm; Wt 64.4 kg
[2022-05-13 08:30] VITALS: BP 126/61
[2022-05-13] MEDS ORDERED: IMMUNE GLOBULIN 10% 20 GM in IV 1 EA IV ONE (08:40)
[2022-05-13 09:15] VITALS: BP 131/70
[2022-05-13 09:45] VITALS: BP 142/78
[2022-05-13 10:30] VITALS: BP 151/71
[2022-05-13 11:20] VITALS: BP 155/77
== END 2022-05-13 11:20 | disposition home or self-care (01) ==
LOC: M INFU 08:30
PROVIDERS: ATTEND Psychiatry & Neurology Neurology
DX: G61.81 Chronic inflammatory demyelinating polyneuritis (principal); Z88.0 Allergy status to penicillin; Z88.5 Allergy status to narcotic agent
CPT/HCPCS: 96365; 96366; J1459

== ENCOUNTER → 2022-06-29 | Outpatient (CLI) | payer MEDICARE, BC ==
[~2022-06-29] MED LIST changes: -ACETAMINOPHEN TAB 650MG DOSE (2X325MG) PO ONE; -ALBUTEROL SULFATE 2.5 MG/0.5 ML INH NEB SOLN INH PRN; -EPINEPHrine INJ 1 MG/ML 1ML AMP IM PRN; -IMMUNE GLOBULIN 10% 20 GM in IV 1 EA IV ONE; -NS 1,000 ML IV SCH; -diphenhydrAMINE 50MG/ML VIAL IV ONE; -diphenhydrAMINE 50MG/ML VIAL IV PRN; -methylPREDNISolone 125MG 2ML VIAL IV ONE; -methylPREDNISolone 125MG 2ML VIAL IV PRN
== END ==
LOC: M LAB 06:38
PROVIDERS: ATTEND Physician Assistant
DX: E10.65 Type 1 diabetes mellitus with hyperglycemia (principal)

== ENCOUNTER 2022-07-13 07:13 | Outpatient (CLI) | payer BC, MEDICARE ==
[~2022-07-13 07:13] MED LIST changes: +ALBUTEROL SULFATE 2.5MG/0.5ML INH NEB SOLN INH PRN; +EPINEPHrine INJ 1 MG/ML 1ML AMP IM PRN; +diphenhydrAMINE 50MG/ML VIAL IV PRN; +methylPREDNISolone 125MG 2ML VIAL IV PRN
[2022-07-13 07:45] VITALS: BP 130/74
[2022-07-13] MEDS ORDERED: OXCA150T21 PO (08:07)
[2022-07-13 08:24] VITALS: BP 132/68
[2022-07-13] MEDS ORDERED: diphenhydrAMINE 50MG/ML VIAL IV ONE (08:30)
[2022-07-13] MEDS ORDERED: IMMUNE GLOBULIN 10% 20 GM in IV 1 EA IV ONE (08:30)
[2022-07-13] MEDS ORDERED: ACETAMINOPHEN TAB 650MG DOSE (2X325MG) PO ONE (08:30)
[2022-07-13] MEDS ORDERED: NS 1,000 ML IV SCH (08:30)
[2022-07-13] MEDS ORDERED: methylPREDNISolone 125MG 2ML VIAL IV ONE (08:30)
[2022-07-13 09:00] VITALS: BP 120/63
[2022-07-13 09:30] VITALS: BP 112/61
[2022-07-13 10:25] VITALS: BP 120/67
== END 2022-07-13 10:25 | disposition home or self-care (01) ==
LOC: M INFU 07:13
PROVIDERS: ATTEND Psychiatry & Neurology Neurology
DX: G61.81 Chronic inflammatory demyelinating polyneuritis (principal); Z88.0 Allergy status to penicillin; Z88.5 Allergy status to narcotic agent
CPT/HCPCS: 96365; 96366; J1459

== ENCOUNTER 2022-07-14 07:45 | Outpatient (CLI) | payer BC, MEDICARE ==
[~2022-07-14] VITALS: Ht 162.6 cm; Wt 64.0 kg
[~2022-07-14 07:45] MED LIST changes: -ALBUTEROL SULFATE 2.5MG/0.5ML INH NEB SOLN INH PRN; -EPINEPHrine INJ 1 MG/ML 1ML AMP IM PRN; +OXCA150T21 PO; -diphenhydrAMINE 50MG/ML VIAL IV PRN; -methylPREDNISolone 125MG 2ML VIAL IV PRN
[2022-07-14 07:57] VITALS: BP 126/67
[2022-07-14] MEDS ORDERED: IMMUNE GLOBULIN 10% 20 GM in IV 1 EA IV ONE (08:00)
[2022-07-14] MEDS ORDERED: EPINEPHrine INJ 1 MG/ML 1ML AMP IM PRN (08:00)
[2022-07-14] MEDS ORDERED: ACETAMINOPHEN TAB 650MG DOSE (2X325MG) PO ONE (08:00)
[2022-07-14] MEDS ORDERED: diphenhydrAMINE 50MG/ML VIAL IV PRN (08:00)
[2022-07-14] MEDS ORDERED: methylPREDNISolone 125MG 2ML VIAL IV ONE (08:00)
[2022-07-14] MEDS ORDERED: diphenhydrAMINE 50MG/ML VIAL IV ONE (08:00)
[2022-07-14] MEDS ORDERED: NS 1,000 ML IV SCH (08:00)
[2022-07-14] MEDS ORDERED: ALBUTEROL SULFATE 2.5MG/0.5ML INH NEB SOLN INH PRN (08:00)
[2022-07-14] MEDS ORDERED: methylPREDNISolone 125MG 2ML VIAL IV PRN (08:00)
[2022-07-14 08:50] VITALS: BP 128/64
[2022-07-14 10:25] VITALS: BP 138/74
== END 2022-07-14 10:20 | disposition home or self-care (01) ==
LOC: M INFU 07:45
PROVIDERS: ATTEND Psychiatry & Neurology Neurology
DX: G61.81 Chronic inflammatory demyelinating polyneuritis (principal); Z88.0 Allergy status to penicillin; Z88.5 Allergy status to narcotic agent
CPT/HCPCS: 96365; 96366; J1459

== ENCOUNTER 2022-07-15 08:45 | Outpatient (CLI) | payer BC, MEDICARE ==
[2022-07-15 08:45] VITALS: BP 138/68
[2022-07-15] MEDS ORDERED: methylPREDNISolone 125MG 2ML VIAL IV PRN (09:00)
[2022-07-15] MEDS ORDERED: IMMUNE GLOBULIN 10% 20 GM in IV 1 EA IV ONE (09:00)
[2022-07-15] MEDS ORDERED: EPINEPHrine INJ 1 MG/ML 1ML AMP IM PRN (09:00)
[2022-07-15] MEDS ORDERED: diphenhydrAMINE 50MG/ML VIAL IV ONE (09:00)
[2022-07-15] MEDS ORDERED: NS 1,000 ML IV SCH (09:00)
[2022-07-15] MEDS ORDERED: ALBUTEROL SULFATE 2.5MG/0.5ML INH NEB SOLN INH PRN (09:00)
[2022-07-15] MEDS ORDERED: ACETAMINOPHEN TAB 650MG DOSE (2X325MG) PO ONE (09:00)
[2022-07-15] MEDS ORDERED: methylPREDNISolone 125MG 2ML VIAL IV ONE (09:00)
[2022-07-15] MEDS ORDERED: diphenhydrAMINE 50MG/ML VIAL IV PRN (09:00)
[2022-07-15 09:30] VITALS: BP 137/70
[2022-07-15 10:00] VITALS: BP 113/66
[2022-07-15 10:30] VITALS: BP 133/77
[2022-07-15 11:00] VITALS: BP 139/72
== END 2022-07-15 11:00 | disposition home or self-care (01) ==
LOC: M INFU 08:45
PROVIDERS: ATTEND Psychiatry & Neurology Neurology
DX: G61.81 Chronic inflammatory demyelinating polyneuritis (principal); Z88.0 Allergy status to penicillin; Z88.5 Allergy status to narcotic agent
CPT/HCPCS: 96365; 96366; J1459

== ENCOUNTER 2022-09-21 08:15 | Outpatient (CLI) | payer BC, MEDICARE ==
[~2022-09-21] VITALS: Ht 170.2 cm; Wt 65.9 kg
[~2022-09-21 08:15] MED LIST changes: +ALBUTEROL SULFATE 2.5MG/0.5ML INH NEB SOLN INH PRN; +EPINEPHrine INJ 1 MG/ML 1ML AMP IM PRN; +diphenhydrAMINE 50MG/ML VIAL IV PRN; +methylPREDNISolone 125MG 2ML VIAL IV PRN
[2022-09-21 08:30] VITALS: BP 129/78
[2022-09-21] MEDS ORDERED: NS 1,000 ML IV SCH (08:30)
[2022-09-21] MEDS ORDERED: methylPREDNISolone 125MG 2ML VIAL IV ONE (08:30)
[2022-09-21] MEDS ORDERED: IMMUNE GLOBULIN 10% 20 GM in IV 1 EA IV ONE (08:30)
[2022-09-21] MEDS ORDERED: diphenhydrAMINE 50MG/ML VIAL IV ONE (08:30)
[2022-09-21] MEDS ORDERED: ACETAMINOPHEN TAB 650MG DOSE (2X325MG) PO ONE (08:30)
[2022-09-21 09:15] VITALS: BP 126/73
[2022-09-21 09:45] VITALS: BP 133/77
[2022-09-21 11:08] VITALS: BP 126/76
== END 2022-09-21 11:12 | disposition home or self-care (01) ==
LOC: M INFU 08:15
PROVIDERS: ATTEND Psychiatry & Neurology Neurology
DX: G61.81 Chronic inflammatory demyelinating polyneuritis (principal); Z88.0 Allergy status to penicillin; Z88.5 Allergy status to narcotic agent
CPT/HCPCS: 96365; 96366; J1459

== ENCOUNTER 2022-09-22 09:50 | Outpatient (CLI) | payer MEDICARE, BC ==
[~2022-09-22] VITALS: Ht 170.2 cm; Wt 66.2 kg
[2022-09-22] MEDS ORDERED: IMMUNE GLOBULIN 10% 20 GM in IV 1 EA IV ONE (10:00)
[2022-09-22] MEDS ORDERED: NS 1,000 ML IV SCH (10:00)
[2022-09-22] MEDS ORDERED: methylPREDNISolone 125MG 2ML VIAL IV ONE (10:00)
[2022-09-22] MEDS ORDERED: diphenhydrAMINE 50MG/ML VIAL IV ONE (10:00)
[2022-09-22] MEDS ORDERED: ACETAMINOPHEN TAB 650MG DOSE (2X325MG) PO ONE (10:00)
[2022-09-22 10:12] VITALS: BP 134/80
[2022-09-22 12:27] VITALS: BP 142/73
== END 2022-09-22 12:30 | disposition home or self-care (01) ==
LOC: M INFU 09:50
PROVIDERS: ATTEND Psychiatry & Neurology Neurology
DX: G61.81 Chronic inflammatory demyelinating polyneuritis (principal); Z88.0 Allergy status to penicillin; Z88.8 Allergy status to other drugs, medicaments and biological substances
CPT/HCPCS: 96365; 96366; J1459

== ENCOUNTER 2022-09-23 08:15 | Outpatient (CLI) | payer MEDICARE, BC ==
[~2022-09-23] VITALS: Ht 170.2 cm; Wt 66.0 kg
[2022-09-23 08:15] VITALS: BP 134/79
[2022-09-23] MEDS ORDERED: IMMUNE GLOBULIN 10% 20 GM in IV 1 EA IV ONE (08:30)
[2022-09-23] MEDS ORDERED: ACETAMINOPHEN TAB 650MG DOSE (2X325MG) PO ONE (08:30)
[2022-09-23] MEDS ORDERED: NS 1,000 ML IV SCH (08:30)
[2022-09-23] MEDS ORDERED: diphenhydrAMINE 50MG/ML VIAL IV ONE (08:30)
[2022-09-23] MEDS ORDERED: methylPREDNISolone 125MG 2ML VIAL IV ONE (08:30)
[2022-09-23 09:31] VITALS: BP 130/68
[2022-09-23 10:14] VITALS: BP 134/72
[2022-09-23 11:05] VITALS: BP 129/65
== END 2022-09-23 11:05 | disposition home or self-care (01) ==
LOC: M INFU 08:15
PROVIDERS: ATTEND Psychiatry & Neurology Neurology
DX: G61.81 Chronic inflammatory demyelinating polyneuritis (principal); Z88.0 Allergy status to penicillin; Z88.5 Allergy status to narcotic agent
CPT/HCPCS: 96365; 96366; J1459

== ENCOUNTER 2022-11-02 09:35 | Outpatient (CLI) | payer MEDICARE, BC ==
[~2022-11-02] VITALS: Ht 170.2 cm; Wt 66.2 kg
[~2022-11-02 09:35] MED LIST changes: +IMMUNE GLOBULIN 10% 20 GM in IV 1 EA IV ONE; +NS 1,000 ML IV SCH; +diphenhydrAMINE 50MG/ML VIAL IV ONE; +methylPREDNISolone 125MG 2ML VIAL IV ONE
[2022-11-02 09:39] VITALS: BP 148/72
[2022-11-02 10:15] VITALS: BP 124/74
[2022-11-02 10:45] VITALS: BP 157/78
[2022-11-02 11:15] VITALS: BP 144/78
== END 2022-11-02 12:05 ==
LOC: M INFU 09:35
PROVIDERS: ATTEND Psychiatry & Neurology Neurology
DX: E88.01 Alpha-1-antitrypsin deficiency (principal); Z88.0 Allergy status to penicillin; Z88.5 Allergy status to narcotic agent
CPT/HCPCS: 96365; 96366; J1459

== ENCOUNTER 2022-11-03 10:20 | Outpatient (CLI) | payer MEDICARE, BC ==
[~2022-11-03] VITALS: Ht 175.3 cm; Wt 73.0 kg
[~2022-11-03 10:20] MED LIST changes: -ALBUTEROL SULFATE 2.5MG/0.5ML INH NEB SOLN INH PRN; -EPINEPHrine INJ 1 MG/ML 1ML AMP IM PRN; -IMMUNE GLOBULIN 10% 20 GM in IV 1 EA IV ONE; -NS 1,000 ML IV SCH; -diphenhydrAMINE 50MG/ML VIAL IV ONE; -diphenhydrAMINE 50MG/ML VIAL IV PRN; -methylPREDNISolone 125MG 2ML VIAL IV ONE; -methylPREDNISolone 125MG 2ML VIAL IV PRN
[2022-11-03] MEDS ORDERED: IMMUNE GLOBULIN 10% 20 GM in IV 1 EA IV ONE (10:30)
[2022-11-03] MEDS ORDERED: ALBUTEROL SULFATE 2.5MG/0.5ML INH NEB SOLN INH PRN (10:30)
[2022-11-03] MEDS ORDERED: EPINEPHrine INJ 1 MG/ML 1ML AMP IM PRN (10:30)
[2022-11-03] MEDS ORDERED: diphenhydrAMINE 50MG/ML VIAL IV PRN (10:30)
[2022-11-03] MEDS ORDERED: diphenhydrAMINE 50MG/ML VIAL IV ONE (10:30)
[2022-11-03] MEDS ORDERED: NS 1,000 ML IV SCH (10:30)
[2022-11-03] MEDS ORDERED: methylPREDNISolone 125MG 2ML VIAL IV ONE (10:30)
[2022-11-03] MEDS ORDERED: methylPREDNISolone 125MG 2ML VIAL IV PRN (10:30)
[2022-11-03 10:41] VITALS: BP 158/77
[2022-11-03 12:50] VITALS: BP 142/79
== END 2022-11-03 12:55 | disposition home or self-care (01) ==
LOC: M INFU 10:20
PROVIDERS: ATTEND Psychiatry & Neurology Neurology
DX: G61.81 Chronic inflammatory demyelinating polyneuritis (principal); Z88.0 Allergy status to penicillin; Z88.5 Allergy status to narcotic agent
CPT/HCPCS: 96365; 96366; J1459

== ENCOUNTER 2022-11-04 09:20 | Outpatient (CLI) | payer MEDICARE, BC ==
[2022-11-04 09:20] VITALS: BP 156/72
[~2022-11-04 09:20] MED LIST changes: +ALBUTEROL SULFATE 2.5MG/0.5ML INH NEB SOLN INH PRN; +EPINEPHrine INJ 1 MG/ML 1ML AMP IM PRN; +diphenhydrAMINE 50MG/ML VIAL IV PRN; +methylPREDNISolone 125MG 2ML VIAL IV PRN
[2022-11-04] MEDS ORDERED: methylPREDNISolone 125MG 2ML VIAL IV ONE (09:30)
[2022-11-04] MEDS ORDERED: IMMUNE GLOBULIN 10% 20 GM in IV 1 EA IV ONE (09:30)
[2022-11-04] MEDS ORDERED: ACETAMINOPHEN TAB 650MG DOSE (2X325MG) PO ONE (09:30)
[2022-11-04] MEDS ORDERED: NS 1,000 ML IV SCH (09:30)
[2022-11-04] MEDS ORDERED: diphenhydrAMINE 50MG/ML VIAL IV ONE (09:30)
[2022-11-04 10:00] VITALS: BP 127/77
[2022-11-04 10:30] VITALS: BP 170/75
[2022-11-04 11:00] VITALS: BP 140/70
[2022-11-04 12:00] VITALS: BP 120/80
== END 2022-11-04 12:10 | disposition home or self-care (01) ==
LOC: M INFU 09:20
PROVIDERS: ATTEND Psychiatry & Neurology Neurology
DX: G61.81 Chronic inflammatory demyelinating polyneuritis (principal); Z88.0 Allergy status to penicillin; Z88.5 Allergy status to narcotic agent
CPT/HCPCS: 96365; 96366; J1459

== ENCOUNTER 2022-12-14 08:44 | Outpatient (CLI) | payer MEDICARE, BC ==
[2022-12-14 08:55] VITALS: BP 166/82; O2SAT 100
[2022-12-14] MEDS ORDERED: diphenhydrAMINE 50MG/ML VIAL IV ONE (09:00)
[2022-12-14] MEDS ORDERED: IMMUNE GLOBULIN 10% 20 GM in IV 1 EA IV ONE (09:00)
[2022-12-14] MEDS ORDERED: methylPREDNISolone 40MG 1ML VIAL IV ONE (09:00)
[2022-12-14] MEDS ORDERED: NS 1,000 ML IV SCH (09:00)
[2022-12-14 09:45] VITALS: BP 122/77; O2SAT 99
[2022-12-14 11:46] VITALS: BP 158/80; O2SAT 98
== END 2022-12-14 11:48 ==
LOC: M INFU 08:44
PROVIDERS: ATTEND Psychiatry & Neurology Neurology
DX: G61.81 Chronic inflammatory demyelinating polyneuritis (principal); Z88.0 Allergy status to penicillin; Z88.8 Allergy status to other drugs, medicaments and biological substances
CPT/HCPCS: 96365; 96366; J1459

== ENCOUNTER 2022-12-15 09:07 | Outpatient (CLI) | payer MEDICARE, BC ==
[~2022-12-15] VITALS: Ht 175.3 cm; Wt 66.0 kg
[~2022-12-15 09:07] MED LIST changes: +IMMUNE GLOBULIN 10% 20 GM in IV 1 EA IV ONE; +NS 1,000 ML IV SCH; +diphenhydrAMINE 50MG/ML VIAL IV ONE; +methylPREDNISolone 125MG 2ML VIAL IV ONE
[2022-12-15 09:23] VITALS: BP 144/73; O2SAT 96
[2022-12-15 10:25] VITALS: BP 119/71; O2SAT 100
== END 2022-12-15 11:45 | disposition home or self-care (01) ==
LOC: M INFU 09:07
PROVIDERS: ATTEND Psychiatry & Neurology Neurology
DX: G61.81 Chronic inflammatory demyelinating polyneuritis (principal); Z88.0 Allergy status to penicillin; Z88.8 Allergy status to other drugs, medicaments and biological substances
CPT/HCPCS: 96365; 96366; J1459

== ENCOUNTER 2022-12-16 09:00 | Outpatient (CLI) | payer MEDICARE, BC ==
[~2022-12-16] VITALS: Ht 170.2 cm; Wt 66.2 kg
[~2022-12-16 09:00] MED LIST changes: -IMMUNE GLOBULIN 10% 20 GM in IV 1 EA IV ONE
[2022-12-16 09:24] VITALS: BP 134/75; O2SAT 98
[2022-12-16] MEDS ORDERED: IMMUNE GLOBULIN 10% 40 GM in IV 1 EA IV ONE (09:30)
[2022-12-16] MEDS ORDERED: IMMUNE GLOBULIN 10% 20 GM in IV 1 EA IV ONE (09:30)
[2022-12-16 09:45] VITALS: BP 133/75; O2SAT 98
[2022-12-16 10:15] VITALS: BP 127/69; O2SAT 97
[2022-12-16 11:30] VITALS: BP 144/80; O2SAT 100
== END 2022-12-16 11:30 ==
LOC: M INFU 09:00
PROVIDERS: ATTEND Psychiatry & Neurology Neurology
DX: G61.81 Chronic inflammatory demyelinating polyneuritis (principal); Z88.0 Allergy status to penicillin; Z88.8 Allergy status to other drugs, medicaments and biological substances
CPT/HCPCS: 96365; 96366; J1459

== ENCOUNTER 2023-01-25 09:50 | Outpatient (CLI) | payer MEDICARE, BC ==
[~2023-01-25] VITALS: Ht 170.2 cm; Wt 67.7 kg
[2023-01-25 09:50] VITALS: BP 149/75; O2SAT 98
[~2023-01-25 09:50] MED LIST changes: +CURRENT HEIGHT AND WEIGHT NEEDED ON PATIENT XX SCH; -NS 1,000 ML IV SCH; -diphenhydrAMINE 50MG/ML VIAL IV ONE; -methylPREDNISolone 125MG 2ML VIAL IV ONE
[2023-01-25] MEDS ORDERED: NS 1,000 ML IV SCH (10:00)
[2023-01-25] MEDS ORDERED: diphenhydrAMINE 50MG/ML VIAL IV ONE (10:00)
[2023-01-25] MEDS ORDERED: methylPREDNISolone 125MG 2ML VIAL IV ONE (10:00)
[2023-01-25] MEDS ORDERED: IMMUNE GLOBULIN 10% 20 GM in IV 1 EA IV ONE (10:15)
[2023-01-25 11:00] VITALS: BP 125/73; O2SAT 98
[2023-01-25 11:30] VITALS: BP 119/72; O2SAT 100
[2023-01-25 12:00] VITALS: BP 123/73; O2SAT 100
[2023-01-25 12:58] VITALS: BP 128/76; O2SAT 98
== END 2023-01-25 13:00 | disposition home or self-care (01) ==
LOC: M INFU 09:50
PROVIDERS: ATTEND Psychiatry & Neurology Neurology
DX: G61.81 Chronic inflammatory demyelinating polyneuritis (principal); Z88.0 Allergy status to penicillin; Z88.8 Allergy status to other drugs, medicaments and biological substances
CPT/HCPCS: 96365; 96366; J1459

== ENCOUNTER 2023-01-26 09:55 | Outpatient (CLI) | payer MEDICARE, BC ==
[~2023-01-26] VITALS: Ht 170.2 cm; Wt 66.9 kg
[~2023-01-26 09:55] MED LIST changes: -CURRENT HEIGHT AND WEIGHT NEEDED ON PATIENT XX SCH
[2023-01-26 10:00] VITALS: BP 130/71; O2SAT 98
[2023-01-26] MEDS ORDERED: methylPREDNISolone 125MG 2ML VIAL IV ONE (10:15)
[2023-01-26] MEDS ORDERED: NS 1,000 ML IV SCH (10:15)
[2023-01-26] MEDS ORDERED: diphenhydrAMINE 50MG/ML VIAL IV ONE (10:15)
[2023-01-26] MEDS: IMMUNE GLOBULIN 10% 20 GM in IV 1 EA IV ONE (10:17)
[2023-01-26 10:45] VITALS: BP 118/68; O2SAT 98
[2023-01-26 11:15] VITALS: BP 117/72; O2SAT 97
[2023-01-26 11:45] VITALS: BP 117/68; O2SAT 98
[2023-01-26 12:45] VITALS: BP 149/78; O2SAT 97
== END 2023-01-26 12:45 | disposition home or self-care (01) ==
LOC: M INFU 09:55
PROVIDERS: ATTEND Psychiatry & Neurology Neurology
DX: G61.81 Chronic inflammatory demyelinating polyneuritis (principal); Z88.0 Allergy status to penicillin; Z88.8 Allergy status to other drugs, medicaments and biological substances
CPT/HCPCS: 96365; 96366; J1459

== ENCOUNTER 2023-01-27 09:28 | Outpatient (CLI) | payer MEDICARE, BC ==
[~2023-01-27] VITALS: Ht 170.2 cm; Wt 66.9 kg
[2023-01-27 09:30] VITALS: BP 134/70; O2SAT 97
[2023-01-27] MEDS ORDERED: NS 1,000 ML IV SCH (09:35)
[2023-01-27] MEDS ORDERED: methylPREDNISolone 125MG 2ML VIAL IV ONE (09:35)
[2023-01-27] MEDS ORDERED: diphenhydrAMINE 50MG/ML VIAL IV ONE (09:40)
[2023-01-27] MEDS ORDERED: IMMUNE GLOBULIN 10% 20 GM in IV 1 EA IV ONE (09:45)
[2023-01-27 10:15] VITALS: BP 125/67; O2SAT 100
[2023-01-27 10:45] VITALS: BP 122/72; O2SAT 100
[2023-01-27 11:15] VITALS: BP 155/72; O2SAT 100
[2023-01-27 12:06] VITALS: BP 152/81; O2SAT 100
== END 2023-01-27 12:10 | disposition home or self-care (01) ==
LOC: M INFU 09:28
PROVIDERS: ATTEND Psychiatry & Neurology Neurology
DX: G61.81 Chronic inflammatory demyelinating polyneuritis (principal); Z88.0 Allergy status to penicillin; Z88.8 Allergy status to other drugs, medicaments and biological substances
CPT/HCPCS: 96365; 96366; J1459

== ENCOUNTER → 2023-02-19 | Outpatient (CLI) | payer MEDICARE, BC ==
[~2023-02-19] MED LIST changes: -ALBUTEROL SULFATE 2.5MG/0.5ML INH NEB SOLN INH PRN; -EPINEPHrine INJ 1 MG/ML 1ML AMP IM PRN; -diphenhydrAMINE 50MG/ML VIAL IV PRN; -methylPREDNISolone 125MG 2ML VIAL IV PRN
[2023-02-19 11:08] LABS: HEMATOCRIT 49.5 % (42.0-52.0); HEMOGLOBIN 16.7 g/dl (13.5-17.5); MEAN CORPUSCULAR HEMOGLOBIN 30.3 pg (27.0-33.0); MEAN CORPUSCULAR HGB CONC 33.7 g/dl (32.0-36.5); MEAN CORPUSCULAR VOLUME 89.8 fl (80.0-96.0); PLATELET COUNT, AUTOMATED 263 10^3/uL (150-450); RED BLOOD COUNT 5.51 10^6/uL (4.30-6.10); WHITE BLOOD COUNT 5.2 10^3/uL (4.0-10.0)
[2023-02-19 11:30] LABS: HEMOGLOBIN A1c 6.5 % (4.0-6.0)
[2023-02-19 11:31] LABS: CREATININE, URINE 84.7 MG/DL; MAU/CREAT RATIO 3.5 MCG/MG (0.0-30.0)
[2023-02-19 11:33] LABS: ALBUMIN 3.6 G/DL (3.2-5.2); ALKALINE PHOSPHATASE 89 U/L (46-116); ALT/SGPT 34 U/L (7.0-40); AST/SGOT 20 U/L (<34); BILIRUBIN,TOTAL 0.6 MG/DL (0.3-1.2); BLOOD UREA NITROGEN 18 MG/DL (9-23); C REACTIVE PROTEIN QUANTITATIV < 0.40 MG/DL (<1.0); CALCIUM LEVEL 8.9 MG/DL (8.3-10.6); CARBON DIOXIDE LEVEL 31 MMOL/L (20-31); CHLORIDE LEVEL 105 MMOL/L (98-107); CHOLESTEROL LEVEL 172 MG/DL (<200); CHOLESTEROL RISK RATIO 2.65 (<5); CREATININE FOR GFR 0.81 MG/DL (0.70-1.30); GLOMERULAR FILTRATION RATE > 60.0 (>49); GLUCOSE, FASTING 168 MG/DL (74-106); HDL CHOLESTEROL 64.7 MG/DL (>40); LDL CHOLESTEROL 91.9 MG/DL (<100); NON-HDL-C 107.3 MG/DL; POTASSIUM SERUM 4.9 MMOL/L (3.5-5.1); SODIUM LEVEL 142 MMOL/L (136-145); TOTAL PROTEIN 6.7 G/DL (5.7-8.2); TRIGLYCERIDES LEVEL 77 MG/DL (<150); VITAMIN B12 LEVEL 1251 PG/ML (211-911)
[2023-02-19 11:34] LABS: THYROID STIMULATING HORMONE 2.312 uIU/ML (0.55-4.78); TOTAL 25(OH) VITAMIN D 41.3 NG/ML (20.0-100.0)
== END ==
LOC: M PLALAB 07:24
PROVIDERS: ATTEND Internal Medicine Hematology
DX: Z00.00 Encounter for general adult medical examination without abnormal findings (principal); Z79.899 Other long term (current) drug therapy; Z12.5 Encounter for screening for malignant neoplasm of prostate
CPT/HCPCS: 36415; 80053; 80061; 82043; 82306; 82607; 83036; 83525; 84439; 84443; 85027; 86140; G0103

== ENCOUNTER 2023-03-09 09:35 | Outpatient (CLI) | payer MEDICARE, BC ==
[2023-03-09 09:35] VITALS: BP 128/74; O2SAT 100
[~2023-03-09 09:35] MED LIST changes: +ALBUTEROL SULFATE 2.5MG/0.5ML INH NEB SOLN INH PRN; +EPINEPHrine INJ 1 MG/ML 1ML AMP IM PRN; +diphenhydrAMINE 50MG/ML VIAL IV PRN; +methylPREDNISolone 125MG 2ML VIAL IV PRN
[2023-03-09] MEDS ORDERED: NS 1,000 ML IV SCH (09:50)
[2023-03-09] MEDS ORDERED: diphenhydrAMINE 25MG IV PRIOR TO INFUSION IV ONE (10:00)
[2023-03-09] MEDS ORDERED: IMMUNE GLOBULIN 10% 20 GM in IV 1 EA IV ONE (10:00)
[2023-03-09] MEDS ORDERED: methylPREDNISolone 125MG 2ML VIAL IV ONE (10:00)
[2023-03-09 10:30] VITALS: BP 104/63; O2SAT 97
[2023-03-09 11:00] VITALS: BP 109/61; O2SAT 97
[2023-03-09 11:30] VITALS: BP 138/68; O2SAT 97
[2023-03-09 12:20] VITALS: BP 138/68; O2SAT 100
== END 2023-03-09 12:25 ==
LOC: M INFU 09:35
PROVIDERS: ATTEND Psychiatry & Neurology Neurology
DX: G61.81 Chronic inflammatory demyelinating polyneuritis (principal); Z88.0 Allergy status to penicillin; Z88.5 Allergy status to narcotic agent
CPT/HCPCS: 96365; 96366; J1459

== ENCOUNTER 2023-03-10 07:50 | Outpatient (CLI) | payer MEDICARE, BC ==
[~2023-03-10] VITALS: Ht 165.1 cm; Wt 68.2 kg
[2023-03-10 08:00] VITALS: BP 148/72; O2SAT 97
[2023-03-10] MEDS ORDERED: NS 1,000 ML IV SCH (08:00)
[2023-03-10] MEDS ORDERED: IMMUNE GLOBULIN 10% 20 GM in IV 1 EA IV ONE (08:00)
[2023-03-10] MEDS ORDERED: methylPREDNISolone 125MG 2ML VIAL IV ONE (08:00)
[2023-03-10] MEDS ORDERED: diphenhydrAMINE 25MG IV PRIOR TO INFUSION IV ONE (08:00)
[2023-03-10 09:00] VITALS: BP 121/71; O2SAT 97
[2023-03-10 10:00] VITALS: BP 118/78; O2SAT 98
[2023-03-10 10:52] VITALS: BP 148/74; O2SAT 96
== END 2023-03-10 10:55 ==
LOC: M INFU 07:50
PROVIDERS: ATTEND Psychiatry & Neurology Neurology
DX: G61.81 Chronic inflammatory demyelinating polyneuritis (principal); Z88.0 Allergy status to penicillin; Z88.8 Allergy status to other drugs, medicaments and biological substances
CPT/HCPCS: 96365; 96366; J1459

== ENCOUNTER 2023-04-19 07:45 | Outpatient (CLI) | payer MEDICARE, BC ==
[~2023-04-19] VITALS: Ht 170.2 cm; Wt 68.0 kg
[2023-04-19 07:45] VITALS: BP 145/68; O2SAT 98
[~2023-04-19 07:45] MED LIST changes: +NS 1,000 ML IV SCH
[2023-04-19] MEDS ORDERED: diphenhydrAMINE 25MG IV PRIOR TO INFUSION IV ONE (08:10)
[2023-04-19] MEDS ORDERED: IMMUNE GLOBULIN 10% 20 GM in IV 1 EA IV ONE (08:10)
[2023-04-19] MEDS ORDERED: methylPREDNISolone 125MG 2ML VIAL IV ONE (08:10)
[2023-04-19 09:15] VITALS: BP 122/69; O2SAT 97
[2023-04-19 09:45] VITALS: BP 135/71; O2SAT 98
[2023-04-19 11:08] VITALS: BP 137/77; O2SAT 98
== END 2023-04-19 11:10 | disposition home or self-care (01) ==
LOC: M INFU 07:45
PROVIDERS: ATTEND Psychiatry & Neurology Neurology
DX: G61.81 Chronic inflammatory demyelinating polyneuritis (principal); Z88.0 Allergy status to penicillin; Z88.8 Allergy status to other drugs, medicaments and biological substances
CPT/HCPCS: 96365; 96366; J1459

== ENCOUNTER 2023-04-20 07:55 | Outpatient (CLI) | payer MEDICARE, BC ==
[2023-04-20 07:55] VITALS: BP 152/70; O2SAT 97
[~2023-04-20 07:55] MED LIST changes: +diphenhydrAMINE 25MG IV PRIOR TO INFUSION IV ONE; +methylPREDNISolone 125MG 2ML VIAL IV ONE
[2023-04-20] MEDS ORDERED: IMMUNE GLOBULIN 10% 20 GM in IV 1 EA IV ONE (08:00)
[2023-04-20 08:45] VITALS: BP 132/74; O2SAT 98
[2023-04-20 09:15] VITALS: BP 148/72; O2SAT 96
[2023-04-20 09:45] VITALS: BP 148/77; O2SAT 99
[2023-04-20 10:39] VITALS: BP 151/74; O2SAT 98
== END 2023-04-20 10:40 ==
LOC: M INFU 07:55
PROVIDERS: ATTEND Psychiatry & Neurology Neurology
DX: G61.81 Chronic inflammatory demyelinating polyneuritis (principal); Z88.0 Allergy status to penicillin; Z88.8 Allergy status to other drugs, medicaments and biological substances
CPT/HCPCS: 96365; 96366; J1459

== ENCOUNTER 2023-04-21 08:25 | Outpatient (CLI) | payer MEDICARE, BC ==
[~2023-04-21] VITALS: Ht 170.2 cm; Wt 68.0 kg
[~2023-04-21 08:25] MED LIST changes: -diphenhydrAMINE 25MG IV PRIOR TO INFUSION IV ONE; -methylPREDNISolone 125MG 2ML VIAL IV ONE
[2023-04-21] MEDS ORDERED: methylPREDNISolone 125MG 2ML VIAL IV ONE (08:30)
[2023-04-21] MEDS ORDERED: diphenhydrAMINE 25MG IV PRIOR TO INFUSION IV ONE (08:30)
[2023-04-21] MEDS ORDERED: IMMUNE GLOBULIN 10% 20 GM in IV 1 EA IV ONE (08:30)
[2023-04-21 08:36] VITALS: BP 142/69; O2SAT 96
[2023-04-21 09:20] VITALS: BP 146/75; O2SAT 99
[2023-04-21 11:27] VITALS: BP 147/67; O2SAT 99
== END 2023-04-21 11:25 ==
LOC: M INFU 08:25
PROVIDERS: ATTEND Psychiatry & Neurology Neurology
DX: G61.81 Chronic inflammatory demyelinating polyneuritis (principal); Z88.0 Allergy status to penicillin; Z88.8 Allergy status to other drugs, medicaments and biological substances
CPT/HCPCS: 96365; 96366; J1459

== ENCOUNTER 2023-05-31 08:00 | Outpatient (CLI) | payer MEDICARE, BC ==
[~2023-05-31] VITALS: Ht 170.2 cm; Wt 68.2 kg
[~2023-05-31 08:00] MED LIST changes: +IMMUNE GLOBULIN 10% 20 GM in IV 1 EA IV ONE; +diphenhydrAMINE 50MG/ML VIAL IV ONE; +methylPREDNISolone 125MG 2ML VIAL IV ONE
[2023-05-31 08:07] VITALS: BP 132/74; O2SAT 98
[2023-05-31] MEDS ORDERED: IMMUNE GLOBULIN 10% 20 GM in IV 1 EA IV ONE (08:30)
[2023-05-31 09:05] VITALS: BP 120/67; O2SAT 98
[2023-05-31 11:00] VITALS: BP 131/74; O2SAT 98
== END 2023-05-31 09:13 | disposition home or self-care (01) ==
LOC: M INFU 08:00
PROVIDERS: ATTEND Psychiatry & Neurology Neurology
DX: G61.81 Chronic inflammatory demyelinating polyneuritis (principal); Z88.0 Allergy status to penicillin; Z88.8 Allergy status to other drugs, medicaments and biological substances
CPT/HCPCS: 96365; 96366; J1459

== ENCOUNTER 2023-06-01 08:30 | Outpatient (CLI) | payer MEDICARE, BC ==
[~2023-06-01] VITALS: Ht 165.1 cm; Wt 68.0 kg
[2023-06-01 08:33] VITALS: BP 135/61; O2SAT 96
[2023-06-01 09:30] VITALS: BP 138/66; O2SAT 98
[2023-06-01 11:25] VITALS: BP 134/75; O2SAT 98
== END 2023-06-01 11:25 | disposition home or self-care (01) ==
LOC: M INFU 08:30
PROVIDERS: ATTEND Psychiatry & Neurology Neurology
DX: G61.81 Chronic inflammatory demyelinating polyneuritis (principal); Z88.0 Allergy status to penicillin; Z88.5 Allergy status to narcotic agent
CPT/HCPCS: 96365; 96366; J1459

== ENCOUNTER 2023-06-02 07:55 | Outpatient (CLI) | payer MEDICARE, BC ==
[~2023-06-02] VITALS: Ht 170.2 cm; Wt 68.1 kg
[2023-06-02 07:55] VITALS: BP 127/62; O2SAT 99
[~2023-06-02 07:55] MED LIST changes: -IMMUNE GLOBULIN 10% 20 GM in IV 1 EA IV ONE; -methylPREDNISolone 125MG 2ML VIAL IV ONE
[2023-06-02] MEDS ORDERED: IMMUNE GLOBULIN 10% 20 GM in IV 1 EA IV ONE (08:00)
[2023-06-02] MEDS ORDERED: methylPREDNISolone 125MG 2ML VIAL IV ONE (08:00)
[2023-06-02 09:45] VITALS: BP 136/75; O2SAT 100
[2023-06-02 11:05] VITALS: BP 142/80; O2SAT 100
== END 2023-06-02 11:05 | disposition home or self-care (01) ==
LOC: M INFU 07:55
PROVIDERS: ATTEND Psychiatry & Neurology Neurology
DX: G61.81 Chronic inflammatory demyelinating polyneuritis (principal); Z88.0 Allergy status to penicillin; Z88.5 Allergy status to narcotic agent
CPT/HCPCS: 96365; 96366; J1459

== ENCOUNTER 2023-07-08 16:03 | Emergency (ER) | payer OTHER, MEDICARE, BC ==
[~2023-07-08 16:03] MED LIST changes: -ALBUTEROL SULFATE 2.5MG/0.5ML INH NEB SOLN INH PRN; -EPINEPHrine INJ 1 MG/ML 1ML AMP IM PRN; -NS 1,000 ML IV SCH; -diphenhydrAMINE 50MG/ML VIAL IV ONE; -diphenhydrAMINE 50MG/ML VIAL IV PRN; -methylPREDNISolone 125MG 2ML VIAL IV PRN
[2023-07-08 17:37] VITALS: BP 148/78; TEMP 98.3; O2SAT 98
[2023-07-08] MEDS ORDERED: methocarbamoL 500 MG TAB PO ONE (17:45)
[2023-07-08] MEDS ORDERED: METH-1164 PO (17:50)
== END 2023-07-08 18:02 | disposition home or self-care (01) ==
LOC: M ED 16:03
DX: M62.838 Other muscle spasm (principal); M75.22 Bicipital tendinitis, left shoulder; V49.40XA Driver injured in collision with unspecified motor vehicles in traffic accident, initial encounter; E11.9 Type 2 diabetes mellitus without complications; E78.5 Hyperlipidemia, unspecified; Z88.0 Allergy status to penicillin; Z88.5 Allergy status to narcotic agent; Z79.84 Long term (current) use of oral hypoglycemic drugs; Z79.899 Other long term (current) drug therapy; Y92.009 Unspecified place in unspecified non-institutional (private) residence as the place of occurrence of the external cause; Y93.9 Activity, unspecified; Y99.9 Unspecified external cause status

== ENCOUNTER 2023-07-12 08:26 | Outpatient (CLI) | payer MEDICARE, BC ==
[~2023-07-12] VITALS: Ht 170.2 cm; Wt 68.1 kg
[~2023-07-12 08:26] MED LIST changes: +ALBUTEROL SULFATE 2.5MG/0.5ML INH NEB SOLN INH PRN; +EPINEPHrine INJ 1 MG/ML 1ML AMP IM PRN; +METH-1164 PO; +diphenhydrAMINE 50MG/ML VIAL IV PRN; +methylPREDNISolone 125MG 2ML VIAL IV PRN
[2023-07-12 08:45] VITALS: BP 146/69; O2SAT 99
[2023-07-12] MEDS ORDERED: NS 1,000 ML IV SCH (08:50)
[2023-07-12] MEDS ORDERED: methylPREDNISolone 125MG 2ML VIAL IV ONE (08:50)
[2023-07-12] MEDS ORDERED: diphenhydrAMINE 50MG/ML VIAL IV ONE (08:50)
[2023-07-12] MEDS ORDERED: IMMUNE GLOBULIN 10% 20 GM in IV 1 EA IV ONE (09:00)
[2023-07-12 09:20] VITALS: BP 132/65; O2SAT 99
[2023-07-12 11:21] VITALS: BP 147/71; O2SAT 96
== END 2023-07-12 11:20 | disposition home or self-care (01) ==
LOC: M INFU 08:26
PROVIDERS: ATTEND Psychiatry & Neurology Neurology
DX: G61.81 Chronic inflammatory demyelinating polyneuritis (principal); Z88.0 Allergy status to penicillin; Z88.5 Allergy status to narcotic agent
CPT/HCPCS: 96365; 96366; J1459

== ENCOUNTER 2023-07-13 07:30 | Outpatient (CLI) | payer MEDICARE, BC ==
[~2023-07-13] VITALS: Ht 170.2 cm; Wt 68.2 kg
[~2023-07-13 07:30] MED LIST changes: +IMMUNE GLOBULIN 10% 20 GM in IV 1 EA IV ONE; +NS 1,000 ML IV SCH; +diphenhydrAMINE 25MG IV PRIOR TO INFUSION IV ONE; +methylPREDNISolone 125MG 2ML VIAL IV ONE
[2023-07-13 07:58] VITALS: BP 144/66; O2SAT 97
[2023-07-13 08:30] VITALS: BP 134/78; O2SAT 98
[2023-07-13 09:30] VITALS: BP 127/72; O2SAT 98
[2023-07-13 10:18] VITALS: BP 144/76; O2SAT 98
== END 2023-07-13 10:20 | disposition home or self-care (01) ==
LOC: M INFU 07:30
PROVIDERS: ATTEND Psychiatry & Neurology Neurology
DX: G61.81 Chronic inflammatory demyelinating polyneuritis (principal); Z88.0 Allergy status to penicillin; Z88.8 Allergy status to other drugs, medicaments and biological substances
CPT/HCPCS: 96365; 96366; J1459

== ENCOUNTER 2023-07-14 08:25 | Outpatient (CLI) | payer MEDICARE, BC ==
[~2023-07-14] VITALS: Ht 170.2 cm; Wt 68.0 kg
[2023-07-14 08:25] VITALS: BP 141/70; O2SAT 100
[2023-07-14 09:15] VITALS: BP 132/69; O2SAT 100
[2023-07-14 09:45] VITALS: BP 128/70; O2SAT 100
[2023-07-14 11:05] VITALS: BP 142/79; O2SAT 100
== END 2023-07-14 11:05 | disposition home or self-care (01) ==
LOC: M INFU 08:25
PROVIDERS: ATTEND Psychiatry & Neurology Neurology
DX: G61.81 Chronic inflammatory demyelinating polyneuritis (principal); Z88.0 Allergy status to penicillin; Z88.5 Allergy status to narcotic agent
CPT/HCPCS: 96365; 96366; J1459

== ENCOUNTER → 2023-08-18 | Outpatient (CLI) | payer MEDICARE, BC ==
[~2023-08-18] MED LIST changes: -ALBUTEROL SULFATE 2.5MG/0.5ML INH NEB SOLN INH PRN; -EPINEPHrine INJ 1 MG/ML 1ML AMP IM PRN; -IMMUNE GLOBULIN 10% 20 GM in IV 1 EA IV ONE; -NS 1,000 ML IV SCH; -diphenhydrAMINE 25MG IV PRIOR TO INFUSION IV ONE; -diphenhydrAMINE 50MG/ML VIAL IV PRN; -methylPREDNISolone 125MG 2ML VIAL IV ONE; -methylPREDNISolone 125MG 2ML VIAL IV PRN
[2023-08-18 11:07] LABS: HEMATOCRIT 47.6 % (42.0-52.0); HEMOGLOBIN 16.3 g/dl (13.5-17.5); MEAN CORPUSCULAR HEMOGLOBIN 30.5 pg (27.0-33.0); MEAN CORPUSCULAR HGB CONC 34.2 g/dl (32.0-36.5); MEAN CORPUSCULAR VOLUME 89.1 fl (80.0-96.0); PLATELET COUNT, AUTOMATED 283 10^3/uL (150-450); RED BLOOD COUNT 5.34 10^6/uL (4.30-6.10); WHITE BLOOD COUNT 5.5 10^3/uL (4.0-10.0)
[2023-08-18 11:35] LABS: CREATININE, URINE 233.4 MG/DL; MAU/CREAT RATIO 1.7 MCG/MG (0.0-30.0)
[2023-08-18 11:36] LABS: C REACTIVE PROTEIN QUANTITATIV < 0.40 MG/DL (<1.0)
[2023-08-18 11:38] LABS: ALBUMIN 3.6 G/DL (3.2-5.2); ALKALINE PHOSPHATASE 80 U/L (46-116); ALT/SGPT 45 U/L (7.0-40); AST/SGOT 27 U/L (<34); BILIRUBIN,TOTAL 0.7 MG/DL (0.3-1.2); BLOOD UREA NITROGEN 18 MG/DL (9-23); CALCIUM LEVEL 8.8 MG/DL (8.3-10.6); CARBON DIOXIDE LEVEL 31 MMOL/L (20-31); CHLORIDE LEVEL 106 MMOL/L (98-107); CHOLESTEROL LEVEL 186 MG/DL (<200); CHOLESTEROL RISK RATIO 3.23 (<5); CREATININE FOR GFR 0.87 MG/DL (0.70-1.30); GLOMERULAR FILTRATION RATE > 60.0 (>49); GLUCOSE, FASTING 122 MG/DL (74-106); HDL CHOLESTEROL 57.5 MG/DL (>40); LDL CHOLESTEROL 113.9 MG/DL (<100); NON-HDL-C 128.5 MG/DL; POTASSIUM SERUM 4.4 MMOL/L (3.5-5.1); SODIUM LEVEL 143 MMOL/L (136-145); TOTAL PROTEIN 6.5 G/DL (5.7-8.2); TRIGLYCERIDES LEVEL 73 MG/DL (<150)
[2023-08-18 11:40] LABS: TOTAL 25(OH) VITAMIN D 45.5 NG/ML (20.0-100.0); VITAMIN B12 LEVEL 1141 PG/ML (211-911)
[2023-08-18 11:41] LABS: THYROID STIMULATING HORMONE 2.142 uIU/ML (0.55-4.78)
[2023-08-18 11:42] LABS: FREE T4 1.06 NG/DL (0.89-1.76)
== END ==
LOC: M PLALAB 07:12
PROVIDERS: ATTEND Internal Medicine Hematology
DX: E10.9 Type 1 diabetes mellitus without complications (principal)

== ENCOUNTER → 2023-08-18 | Outpatient (CLI) | payer MEDICARE, BC ==
[2023-08-18 11:39] LABS: TOTAL 25(OH) VITAMIN D 45.6 NG/ML (20.0-100.0)
[2023-08-18 11:40] LABS: ALBUMIN 3.7 G/DL (3.2-5.2); ALKALINE PHOSPHATASE 80 U/L (46-116); ALT/SGPT 45 U/L (7.0-40); AST/SGOT 27 U/L (<34); BILIRUBIN,TOTAL 0.7 MG/DL (0.3-1.2); BLOOD UREA NITROGEN 18 MG/DL (9-23); CARBON DIOXIDE LEVEL 31 MMOL/L (20-31); CHLORIDE LEVEL 107 MMOL/L (98-107); CHOLESTEROL LEVEL 186 MG/DL (<200); CHOLESTEROL RISK RATIO 3.26 (<5); CREATININE FOR GFR 0.87 MG/DL (0.70-1.30); GLOMERULAR FILTRATION RATE > 60.0 (>49); GLUCOSE, FASTING 124 MG/DL (74-106); HDL CHOLESTEROL 56.9 MG/DL (>40); LDL CHOLESTEROL 114.7 MG/DL (<100); NON-HDL-C 129.1 MG/DL; POTASSIUM SERUM 4.5 MMOL/L (3.5-5.1); SODIUM LEVEL 143 MMOL/L (136-145); TOTAL PROTEIN 6.5 G/DL (5.7-8.2); TRIGLYCERIDES LEVEL 72 MG/DL (<150)
== END ==
LOC: M PLALAB 07:09
PROVIDERS: ATTEND Physician Assistant
DX: E10.65 Type 1 diabetes mellitus with hyperglycemia (principal); E55.9 Vitamin D deficiency, unspecified

== ENCOUNTER 2023-08-23 08:15 | Outpatient (CLI) | payer MEDICARE, BC ==
[~2023-08-23] VITALS: Ht 170.2 cm; Wt 65.9 kg
[2023-08-23 08:05] VITALS: BP 144/67; O2SAT 95
[~2023-08-23 08:15] MED LIST changes: +ALBUTEROL SULFATE 2.5MG/0.5ML INH NEB SOLN INH PRN; +EPINEPHrine INJ 1 MG/ML 1ML AMP IM PRN; +NS 1,000 ML IV SCH; +diphenhydrAMINE 25MG IV PRIOR TO INFUSION IV ONE; +diphenhydrAMINE 50MG/ML VIAL IV PRN; +methylPREDNISolone 125MG 2ML VIAL IV ONE; +methylPREDNISolone 125MG 2ML VIAL IV PRN
[2023-08-23] MEDS: IMMUNE GLOBULIN 10% 20 GM in IV 1 EA IV ONE (08:33)
[2023-08-23 09:15] VITALS: BP 139/70; O2SAT 95
[2023-08-23 09:45] VITALS: BP 137/75; O2SAT 98
[2023-08-23 11:05] VITALS: BP 151/73; O2SAT 100
== END 2023-08-24 11:05 | disposition home or self-care (01) ==
LOC: M INFU 08:15
PROVIDERS: ATTEND Psychiatry & Neurology Neurology
DX: G61.81 Chronic inflammatory demyelinating polyneuritis (principal); Z88.0 Allergy status to penicillin; Z88.5 Allergy status to narcotic agent
CPT/HCPCS: 96365; 96366; J1459

== ENCOUNTER 2023-08-24 07:05 | Outpatient (CLI) | payer MEDICARE, BC ==
[~2023-08-24] VITALS: Ht 170.2 cm; Wt 69.0 kg
[2023-08-24 07:05] VITALS: BP 138/65; O2SAT 99
[2023-08-24] MEDS: IMMUNE GLOBULIN 10% 20 GM in IV 1 EA IV ONE (07:11)
[2023-08-24 08:00] VITALS: BP 126/66; O2SAT 100
[2023-08-24 08:30] VITALS: BP 133/77; O2SAT 99
[2023-08-24 09:30] VITALS: BP 130/80; O2SAT 100
== END 2023-08-24 09:30 | disposition home or self-care (01) ==
LOC: M INFU 07:05
PROVIDERS: ATTEND Psychiatry & Neurology Neurology
DX: G61.81 Chronic inflammatory demyelinating polyneuritis (principal); Z88.0 Allergy status to penicillin; Z88.5 Allergy status to narcotic agent
CPT/HCPCS: 96365; 96366; J1459

== ENCOUNTER 2023-08-25 08:10 | Outpatient (CLI) | payer MEDICARE, BC ==
[~2023-08-25] VITALS: Ht 170.2 cm; Wt 65.9 kg
[2023-08-25 08:10] VITALS: BP 138/63; O2SAT 100
[~2023-08-25 08:10] MED LIST changes: -diphenhydrAMINE 25MG IV PRIOR TO INFUSION IV ONE; -methylPREDNISolone 125MG 2ML VIAL IV ONE
[2023-08-25] MEDS: IMMUNE GLOBULIN 10% 20 GM in IV 1 EA IV ONE (08:24)
[2023-08-25] MEDS: diphenhydrAMINE 25MG IV PRIOR TO INFUSION IV ONE (08:27)
[2023-08-25] MEDS: methylPREDNISolone 125MG 2ML VIAL IV ONE (08:27)
[2023-08-25 09:00] VITALS: BP 131/67; O2SAT 100
[2023-08-25 09:30] VITALS: BP 133/69; O2SAT 100
[2023-08-25 10:00] VITALS: BP 121/72; O2SAT 98
[2023-08-25 10:55] VITALS: BP 155/80; O2SAT 99
== END 2023-08-25 10:55 | disposition home or self-care (01) ==
LOC: M INFU 08:10
PROVIDERS: ATTEND Psychiatry & Neurology Neurology
DX: G61.81 Chronic inflammatory demyelinating polyneuritis (principal); Z88.0 Allergy status to penicillin; Z88.4 Allergy status to anesthetic agent
CPT/HCPCS: 96365; 96366; J1459

== ENCOUNTER 2023-10-04 08:30 | Outpatient (CLI) | payer MEDICARE, BC ==
[~2023-10-04] VITALS: Ht 170.2 cm; Wt 68.0 kg
[2023-10-04 08:30] VITALS: BP 134/63; O2SAT 94
[~2023-10-04 08:30] MED LIST changes: +diphenhydrAMINE 25MG IV PRIOR TO INFUSION IV ONE; +methylPREDNISolone 125MG 2ML VIAL IV ONE
[2023-10-04] MEDS: IMMUNE GLOBULIN 10% 20 GM in IV 1 EA IV ONE (08:57)
[2023-10-04 09:30] VITALS: BP 128/64; O2SAT 100
[2023-10-04 10:00] VITALS: BP 170/78; O2SAT 98
[2023-10-04 10:30] VITALS: BP 160/74; O2SAT 100
[2023-10-04 11:30] VITALS: BP 154/84; O2SAT 100
== END 2023-10-04 11:30 ==
LOC: M INFU 08:30
PROVIDERS: ATTEND Psychiatry & Neurology Neurology
DX: G61.81 Chronic inflammatory demyelinating polyneuritis (principal); Z88.0 Allergy status to penicillin; Z88.8 Allergy status to other drugs, medicaments and biological substances
CPT/HCPCS: 96365; 96366; J1459

== ENCOUNTER 2023-10-05 08:25 | Outpatient (CLI) | payer MEDICARE, BC ==
[~2023-10-05] VITALS: Ht 170.2 cm; Wt 68.0 kg
[~2023-10-05 08:25] MED LIST changes: -diphenhydrAMINE 25MG IV PRIOR TO INFUSION IV ONE; -methylPREDNISolone 125MG 2ML VIAL IV ONE
[2023-10-05 08:30] VITALS: BP 151/72; O2SAT 98
[2023-10-05] MEDS ORDERED: diphenhydrAMINE 25MG IV PRIOR TO INFUSION IV ONE (08:30)
[2023-10-05] MEDS ORDERED: methylPREDNISolone 125MG 2ML VIAL IV ONE (08:30)
[2023-10-05] MEDS: IMMUNE GLOBULIN 10% 20 GM in IV 1 EA IV ONE (08:44)
[2023-10-05 09:15] VITALS: BP 137/71; O2SAT 96
[2023-10-05 09:45] VITALS: BP 149/78; O2SAT 100
[2023-10-05 10:15] VITALS: BP 140/71; O2SAT 100
[2023-10-05 11:05] VITALS: BP 153/74; O2SAT 97
== END 2023-10-05 11:10 | disposition home or self-care (01) ==
LOC: M INFU 08:25
PROVIDERS: ATTEND Psychiatry & Neurology Neurology
DX: G61.81 Chronic inflammatory demyelinating polyneuritis (principal); Z88.0 Allergy status to penicillin; Z88.8 Allergy status to other drugs, medicaments and biological substances
CPT/HCPCS: 96365; 96366; J1459

== ENCOUNTER 2023-10-06 08:28 | Outpatient (CLI) | payer MEDICARE, BC ==
[~2023-10-06] VITALS: Ht 170.2 cm; Wt 68.0 kg
[~2023-10-06 08:28] MED LIST changes: -NS 1,000 ML IV SCH
[2023-10-06 08:30] VITALS: BP 139/63; O2SAT 98
[2023-10-06] MEDS ORDERED: NS 1,000 ML IV SCH (08:30)
[2023-10-06] MEDS: IMMUNE GLOBULIN 10% 20 GM in IV 1 EA IV ONE (08:44)
[2023-10-06] MEDS: methylPREDNISolone 125MG 2ML VIAL IV ONE (08:45)
[2023-10-06] MEDS: diphenhydrAMINE 50MG/ML VIAL IV ONE (08:45)
[2023-10-06 09:15] VITALS: BP 125/67; O2SAT 97
[2023-10-06 09:45] VITALS: BP 130/71; O2SAT 98
[2023-10-06 10:15] VITALS: BP 131/78; O2SAT 100
[2023-10-06 10:50] VITALS: BP 123/72; O2SAT 100
== END 2023-10-06 11:10 | disposition home or self-care (01) ==
LOC: M INFU 08:28
PROVIDERS: ATTEND Psychiatry & Neurology Neurology
DX: G61.81 Chronic inflammatory demyelinating polyneuritis (principal); Z88.0 Allergy status to penicillin; Z88.8 Allergy status to other drugs, medicaments and biological substances
CPT/HCPCS: 96365; J1459

== ENCOUNTER 2023-11-16 08:32 | Outpatient (CLI) | payer MEDICARE, BC ==
[~2023-11-16] VITALS: Ht 170.2 cm; Wt 68.2 kg
[~2023-11-16 08:32] MED LIST changes: +NS 1,000 ML IV SCH; -ROSU10TA6 PO; +ROSU10TA61 PO
[2023-11-16 08:35] VITALS: BP 139/71; O2SAT 98
[2023-11-16] MEDS ORDERED: diphenhydrAMINE 25MG IV PRIOR TO INFUSION IV ONE (09:00)
[2023-11-16] MEDS ORDERED: methylPREDNISolone 125MG 2ML VIAL IV ONE (09:00)
[2023-11-16] MEDS: IMMUNE GLOBULIN 10% 20 GM in IV 1 EA IV ONE (09:32)
[2023-11-16 10:00] VITALS: BP 131/71; O2SAT 96
[2023-11-16 10:30] VITALS: BP 162/72; O2SAT 99
[2023-11-16 11:40] VITALS: BP 145/76; O2SAT 100
== END 2023-11-16 11:45 | disposition home or self-care (01) ==
LOC: M INFU 08:32
PROVIDERS: ATTEND Psychiatry & Neurology Neurology
DX: G61.81 Chronic inflammatory demyelinating polyneuritis (principal); Z88.0 Allergy status to penicillin; Z88.5 Allergy status to narcotic agent
CPT/HCPCS: 96365; 96366; J1459

== ENCOUNTER 2023-11-17 08:30 | Outpatient (CLI) | payer MEDICARE, BC ==
[~2023-11-17] VITALS: Ht 167.6 cm; Wt 68.2 kg
[2023-11-17 08:30] VITALS: BP_SYST 131; O2SAT 99
[~2023-11-17 08:30] MED LIST changes: +diphenhydrAMINE 25MG IV PRIOR TO INFUSION IV ONE; +methylPREDNISolone 125MG 2ML VIAL IV ONE
[2023-11-17] MEDS: IMMUNE GLOBULIN 10% 20 GM in IV 1 EA IV ONE (08:50)
[2023-11-17 09:30] VITALS: BP 161/77; O2SAT 100
[2023-11-17 09:58] VITALS: BP 138/75; O2SAT 99
[2023-11-17 10:30] VITALS: BP 136/68; O2SAT 99
[2023-11-17 11:20] VITALS: BP 149/75; O2SAT 97
== END 2023-11-17 11:20 | disposition home or self-care (01) ==
LOC: M INFU 08:30
PROVIDERS: ATTEND Psychiatry & Neurology Neurology
DX: G61.81 Chronic inflammatory demyelinating polyneuritis (principal); Z88.0 Allergy status to penicillin; Z88.5 Allergy status to narcotic agent
CPT/HCPCS: 96365; 96366; J1459

== ENCOUNTER 2023-11-18 08:30 | Outpatient (CLI) | payer MEDICARE, BC ==
[~2023-11-18] VITALS: Ht 167.6 cm; Wt 68.2 kg
[2023-11-18 08:33] VITALS: BP 141/65; O2SAT 99
[2023-11-18] MEDS: IMMUNE GLOBULIN 10% 20 GM in IV 1 EA IV ONE (09:04)
[2023-11-18 11:20] VITALS: BP 174/90; O2SAT 98
== END 2023-11-18 11:20 | disposition home or self-care (01) ==
LOC: M INFU 08:30
PROVIDERS: ATTEND Psychiatry & Neurology Neurology
DX: G61.81 Chronic inflammatory demyelinating polyneuritis (principal); Z88.0 Allergy status to penicillin; Z88.5 Allergy status to narcotic agent
CPT/HCPCS: 96365; 96366; J1459

== ENCOUNTER 2023-12-28 10:00 | Outpatient (CLI) | payer MEDICARE, BC ==
[~2023-12-28] VITALS: Ht 170.2 cm; Wt 68.2 kg
[~2023-12-28 10:00] MED LIST changes: -diphenhydrAMINE 25MG IV PRIOR TO INFUSION IV ONE; -methylPREDNISolone 125MG 2ML VIAL IV ONE
[2023-12-28 10:05] VITALS: BP 134/67; O2SAT 97
[2023-12-28] MEDS: diphenhydrAMINE 50MG/ML VIAL IV ONE (10:22)
[2023-12-28] MEDS: IMMUNE GLOBULIN 10% 20 GM in IV 1 EA IV ONE (10:23)
[2023-12-28] MEDS: methylPREDNISolone 125MG 2ML VIAL IV ONE (10:24)
[2023-12-28 11:00] VITALS: BP 127/69; O2SAT 98
[2023-12-28 11:30] VITALS: BP 111/72; O2SAT 99
[2023-12-28 12:00] VITALS: BP 130/71; O2SAT 99
[2023-12-28 12:50] VITALS: BP 162/72; O2SAT 99
== END 2023-12-28 12:48 ==
LOC: M INFU 10:00
PROVIDERS: ATTEND Psychiatry & Neurology Neurology
DX: G61.81 Chronic inflammatory demyelinating polyneuritis (principal); Z88.0 Allergy status to penicillin; Z88.5 Allergy status to narcotic agent
CPT/HCPCS: 96365; 96366; J1459

== ENCOUNTER 2023-12-29 08:30 | Outpatient (CLI) | payer MEDICARE, BC ==
[~2023-12-29] VITALS: Ht 170.2 cm; Wt 68.1 kg
[2023-12-29 08:30] VITALS: BP 134/70; O2SAT 98
[~2023-12-29 08:30] MED LIST changes: +diphenhydrAMINE 50MG/ML VIAL IV ONE; +methylPREDNISolone 125MG 2ML VIAL IV ONE
[2023-12-29] MEDS: IMMUNE GLOBULIN 10% 20 GM in IV 1 EA IV ONE (08:44)
[2023-12-29 09:15] VITALS: BP 137/72; O2SAT 98
[2023-12-29 09:45] VITALS: BP 131/66; O2SAT 97
[2023-12-29 10:15] VITALS: BP 133/69; O2SAT 98
[2023-12-29 11:00] VITALS: BP 132/66; O2SAT 99
== END 2023-12-29 11:00 ==
LOC: M INFU 08:30
PROVIDERS: ATTEND Psychiatry & Neurology Neurology
DX: G61.81 Chronic inflammatory demyelinating polyneuritis (principal); Z88.0 Allergy status to penicillin; Z88.8 Allergy status to other drugs, medicaments and biological substances
CPT/HCPCS: 96365; 96366; J1459

== ENCOUNTER 2023-12-30 07:30 | Outpatient (CLI) | payer MEDICARE, BC ==
[~2023-12-30] VITALS: Ht 170.2 cm; Wt 68.3 kg
[2023-12-30 07:35] VITALS: BP 139/77; O2SAT 98
[2023-12-30] MEDS: IMMUNE GLOBULIN 10% 20 GM in IV 1 EA IV ONE (07:42)
[2023-12-30 08:45] VITALS: BP 126/73; O2SAT 99
[2023-12-30 09:15] VITALS: BP 129/70; O2SAT 100
[2023-12-30 10:05] VITALS: BP 167/79; O2SAT 100
== END 2023-12-30 10:10 ==
LOC: M INFU 07:30
PROVIDERS: ATTEND Psychiatry & Neurology Neurology
DX: G61.81 Chronic inflammatory demyelinating polyneuritis (principal); Z88.0 Allergy status to penicillin; Z88.8 Allergy status to other drugs, medicaments and biological substances
CPT/HCPCS: 96365; 96366; J1459

== ENCOUNTER → 2024-01-03 | Outpatient (CLI) | payer BC, MEDICARE ==
[~2024-01-03] MED LIST changes: -ALBUTEROL SULFATE 2.5MG/0.5ML INH NEB SOLN INH PRN; -EPINEPHrine INJ 1 MG/ML 1ML AMP IM PRN; -NS 1,000 ML IV SCH; -diphenhydrAMINE 50MG/ML VIAL IV ONE; -diphenhydrAMINE 50MG/ML VIAL IV PRN; -methylPREDNISolone 125MG 2ML VIAL IV ONE; -methylPREDNISolone 125MG 2ML VIAL IV PRN
[2024-01-03 12:04] LABS: CHOLESTEROL RISK RATIO 3.17 (<5); HDL CHOLESTEROL 49.1 MG/DL (>40); LDL CHOLESTEROL 87.3 MG/DL (<100); NON-HDL-C 106.9 MG/DL
== END ==
LOC: M PLALAB 07:11
PROVIDERS: ATTEND Physician Assistant
DX: E78.5 Hyperlipidemia, unspecified (principal)

== ENCOUNTER → 2024-01-10 | Outpatient (CLI) | payer MEDICARE ==
[2024-01-10 13:18] LABS: INR 1.04; PARTIAL THROMBOPLASTIN TIME 28.3 SECONDS (24.8-34.2); PROTHROMBIN TIME 13.3 SECONDS (12.5-14.5)
[2024-01-10 14:30] LABS: APPEARANCE, URINE CLEAR (CLEAR); BACTERIA, URINE AUTO NEGATIVE (NEGATIVE); BILIRUBIN, URINE AUTO NEGATIVE (NEGATIVE); BLOOD, URINE BLOOD NEGATIVE (NEGATIVE); COLOR, URINE YELLOW (YELLOW); GLUCOSE, URINE (UA) AUTO NEGATIVE (NEGATIVE); KETONE, URINE AUTO NEGATIVE (NEGATIVE); LEUKOCYTE ESTERASE, URINE AUTO NEGATIVE (NEGATIVE); MUCUS, URINE SMALL (NEGATIVE); NITRITE, URINE AUTO NEGATIVE (NEGATIVE); PROTEIN, URINE AUTO NEGATIVE (NEGATIVE); RBC, URINE AUTO 0 /HPF (0-3); SPECIFIC GRAVITY URINE AUTO 1.027 (1.002-1.035); SQUAMOUS EPITHELIAL CELL UR AU 0 /HPF (0-6); WBC, URINE AUTO 0 /HPF (0-3)
[2024-01-10 14:31] LABS: BASO % 0.5 % (0.0-1.0); EOS # 0.1 10^3/uL (0.0-0.5); EOS % 1.3 % (0.0-3.0); HEMATOCRIT 46.6 % (42.0-52.0); LYMPH # 1.4 10^3/uL (1.5-5.0); LYMPH % 26.3 % (24.0-44.0); MEAN CORPUSCULAR HEMOGLOBIN 30.5 pg (27.0-33.0); MEAN CORPUSCULAR HGB CONC 34.3 g/dl (32.0-36.5); MEAN CORPUSCULAR VOLUME 88.8 fl (80.0-96.0); MONO # 0.5 10^3/uL (0.0-0.8); MONO % 9.5 % (2.0-8.0); NEUTROPHILS # 3.4 10^3/uL (1.5-8.5); NEUTROPHILS % 62.2 % (36.0-66.0); PLATELET COUNT, AUTOMATED 257 10^3/uL (150-450); RED BLOOD COUNT 5.25 10^6/uL (4.30-6.10); WHITE BLOOD COUNT 5.5 10^3/uL (4.0-10.0)
[2024-01-10 14:59] LABS: ALBUMIN 3.8 G/DL (3.2-5.2); ALKALINE PHOSPHATASE 79 U/L (46-116); ALT/SGPT 41 U/L (7.0-40); AST/SGOT 33 U/L (<34); BILIRUBIN,TOTAL 0.6 MG/DL (0.3-1.2); BLOOD UREA NITROGEN 16 MG/DL (9-23); CALCIUM LEVEL 9.3 MG/DL (8.3-10.6); CARBON DIOXIDE LEVEL 30 MMOL/L (20-31); CHLORIDE LEVEL 108 MMOL/L (98-107); GLOMERULAR FILTRATION RATE > 60.0 (>49); GLUCOSE, FASTING 65 MG/DL (74-106); POTASSIUM SERUM 4.3 MMOL/L (3.5-5.1); SODIUM LEVEL 143 MMOL/L (136-145); TOTAL PROTEIN 7.2 G/DL (5.7-8.2)
[2024-01-10 15:17] LABS: HEMOGLOBIN A1c 6.8 % (4.0-6.0)
== END ==
LOC: M PLALAB 10:44
PROVIDERS: ATTEND Internal Medicine Hematology
DX: Z01.818 Encounter for other preprocedural examination (principal); E10.9 Type 1 diabetes mellitus without complications; Z79.899 Other long term (current) drug therapy; R06.02 Shortness of breath

== ENCOUNTER 2024-02-08 08:58 | Outpatient (CLI) | payer MEDICARE, BC ==
[~2024-02-08] VITALS: Ht 170.2 cm; Wt 65.9 kg
[2024-02-08 08:55] VITALS: BP 134/75; O2SAT 100
[~2024-02-08 08:58] MED LIST changes: +ALBUTEROL SULFATE 2.5MG/0.5ML INH NEB SOLN INH PRN; +EPINEPHrine INJ 1 MG/ML 1ML AMP IM PRN; +NS 1,000 ML IV SCH; +diphenhydrAMINE 50MG/ML VIAL IV PRN; +methylPREDNISolone 125MG 2ML VIAL IV PRN
[2024-02-08] MEDS ORDERED: diphenhydrAMINE 25MG IV PRIOR TO INFUSION IV ONE (09:00)
[2024-02-08] MEDS ORDERED: methylPREDNISolone 125MG 2ML VIAL IV ONE (09:00)
[2024-02-08] MEDS: IMMUNE GLOBULIN 10% 20 GM in IV 1 EA IV ONE (09:32)
[2024-02-08 10:00] VITALS: BP 108/58; O2SAT 98
[2024-02-08 10:30] VITALS: BP 147/70; O2SAT 99
[2024-02-08 11:00] VITALS: BP 133/69; O2SAT 98
[2024-02-08 11:55] VITALS: BP 122/70; O2SAT 99
== END 2024-02-08 12:00 ==
LOC: M INFU 08:58
PROVIDERS: ATTEND Psychiatry & Neurology Neurology
DX: G61.81 Chronic inflammatory demyelinating polyneuritis (principal); Z88.0 Allergy status to penicillin; Z88.5 Allergy status to narcotic agent
CPT/HCPCS: 96365; 96366; J1459

== ENCOUNTER 2024-02-09 08:20 | Outpatient (CLI) | payer MEDICARE, BC ==
[2024-02-09 08:20] VITALS: BP 135/65; O2SAT 98
[2024-02-09] MEDS: IMMUNE GLOBULIN 10% 20 GM in IV 1 EA IV ONE (08:21)
[2024-02-09] MEDS ORDERED: methylPREDNISolone 125MG 2ML VIAL IV ONE (08:30)
[2024-02-09] MEDS ORDERED: diphenhydrAMINE 25MG IV PRIOR TO INFUSION IV ONE (08:30)
[2024-02-09 08:50] VITALS: BP 129/63; O2SAT 98
[2024-02-09 09:20] VITALS: BP 143/67; O2SAT 99
[2024-02-09 09:50] VITALS: BP 130/73; O2SAT 98
[2024-02-09 10:50] VITALS: BP 133/63; O2SAT 98
== END 2024-02-09 10:50 ==
LOC: M INFU 08:20
PROVIDERS: ATTEND Psychiatry & Neurology Neurology
DX: G61.81 Chronic inflammatory demyelinating polyneuritis (principal); Z88.0 Allergy status to penicillin; Z88.8 Allergy status to other drugs, medicaments and biological substances
CPT/HCPCS: 96365; 96366; J1459

== ENCOUNTER 2024-02-10 08:30 | Outpatient (CLI) | payer MEDICARE, BC ==
[~2024-02-10] VITALS: Ht 170.2 cm; Wt 66.0 kg
[~2024-02-10 08:30] MED LIST changes: +diphenhydrAMINE 25MG IV PRIOR TO INFUSION IV ONE; +methylPREDNISolone 125MG 2ML VIAL IV ONE
[2024-02-10 08:46] VITALS: BP 129/60; O2SAT 99
[2024-02-10] MEDS: IMMUNE GLOBULIN 10% 20 GM in IV 1 EA IV ONE (08:58)
[2024-02-10 09:50] VITALS: BP 132/68; O2SAT 99
[2024-02-10 10:20] VITALS: BP 130/60; O2SAT 99
[2024-02-10 11:15] VITALS: BP 130/66; O2SAT 99
== END 2024-02-10 11:20 ==
LOC: M INFU 08:30
PROVIDERS: ATTEND Psychiatry & Neurology Neurology
DX: G61.81 Chronic inflammatory demyelinating polyneuritis (principal); Z88.0 Allergy status to penicillin; Z88.8 Allergy status to other drugs, medicaments and biological substances
CPT/HCPCS: 96365; 96366; J1459

== ENCOUNTER → 2024-03-10 | Outpatient (CLI) | payer MEDICARE, BC ==
[~2024-03-10] MED LIST changes: -ALBUTEROL SULFATE 2.5MG/0.5ML INH NEB SOLN INH PRN; -EPINEPHrine INJ 1 MG/ML 1ML AMP IM PRN; -NS 1,000 ML IV SCH; -diphenhydrAMINE 25MG IV PRIOR TO INFUSION IV ONE; -diphenhydrAMINE 50MG/ML VIAL IV PRN; -methylPREDNISolone 125MG 2ML VIAL IV ONE; -methylPREDNISolone 125MG 2ML VIAL IV PRN
== END ==
LOC: M CARPUL 09:07
PROVIDERS: ATTEND Internal Medicine Hematology
DX: I50.9 Heart failure, unspecified (principal)

== ENCOUNTER 2024-03-20 07:00 | Outpatient (CLI) | payer MEDICARE, BC ==
[~2024-03-20] VITALS: Ht 170.2 cm; Wt 67.7 kg
[2024-03-20 07:00] VITALS: BP 165/77; O2SAT 100
[~2024-03-20 07:00] MED LIST changes: +NS 1,000 ML IV SCH
[2024-03-20] MEDS ORDERED: ALBUTEROL SULFATE 2.5MG/0.5ML INH NEB SOLN INH PRN (07:01)
[2024-03-20] MEDS ORDERED: methylPREDNISolone 125MG 2ML VIAL IV PRN (07:01)
[2024-03-20] MEDS ORDERED: diphenhydrAMINE 50MG/ML VIAL IV PRN (07:01)
[2024-03-20] MEDS ORDERED: EPINEPHrine INJ 1 MG/ML 1ML AMP IM PRN (07:01)
[2024-03-20] MEDS: IMMUNE GLOBULIN 10% 20 GM in IV 1 EA IV ONE (07:55)
[2024-03-20] MEDS: methylPREDNISolone 125MG 2ML VIAL IV ONE (07:59)
[2024-03-20] MEDS: diphenhydrAMINE 50MG/ML VIAL IV ONE (07:59)
[2024-03-20 08:30] VITALS: BP 137/74; O2SAT 98
[2024-03-20 09:00] VITALS: BP 121/69; O2SAT 98
[2024-03-20 09:30] VITALS: BP 129/71; O2SAT 98
[2024-03-20 10:15] VITALS: BP 142/77; O2SAT 100
== END 2024-03-20 10:25 ==
LOC: M INFU 07:00
PROVIDERS: ATTEND Psychiatry & Neurology Neurology
DX: G61.81 Chronic inflammatory demyelinating polyneuritis (principal); Z88.0 Allergy status to penicillin; Z88.8 Allergy status to other drugs, medicaments and biological substances
CPT/HCPCS: 96365; 96366; J1459

== ENCOUNTER 2024-03-21 09:30 | Outpatient (CLI) | payer MEDICARE, BC ==
[~2024-03-21] VITALS: Ht 170.2 cm; Wt 67.7 kg
[2024-03-21 09:00] VITALS: BP 153/70; O2SAT 97
[2024-03-21] MEDS: methylPREDNISolone 125MG 2ML VIAL IV ONE (09:25)
[2024-03-21] MEDS: diphenhydrAMINE 50MG/ML VIAL IV ONE (09:25)
[2024-03-21] MEDS: IMMUNE GLOBULIN 10% 20 GM in IV 1 EA IV ONE (09:27)
[~2024-03-21 09:30] MED LIST changes: +ALBUTEROL SULFATE 2.5MG/0.5ML INH NEB SOLN INH PRN; +EPINEPHrine INJ 1 MG/ML 1ML AMP IM PRN; +diphenhydrAMINE 50MG/ML VIAL IV PRN; +methylPREDNISolone 125MG 2ML VIAL IV PRN
[2024-03-21 10:00] VITALS: BP 130/60; O2SAT 99
[2024-03-21 10:30] VITALS: BP 130/71; O2SAT 100
[2024-03-21 11:00] VITALS: BP 128/60; O2SAT 100
[2024-03-21 11:50] VITALS: BP 120/72; O2SAT 99
== END 2024-03-21 11:55 ==
LOC: M INFU 09:30
PROVIDERS: ATTEND Psychiatry & Neurology Neurology
DX: G61.81 Chronic inflammatory demyelinating polyneuritis (principal); Z88.0 Allergy status to penicillin; Z88.8 Allergy status to other drugs, medicaments and biological substances
CPT/HCPCS: 96365; J1459

== ENCOUNTER 2024-03-22 09:30 | Outpatient (CLI) | payer MEDICARE, BC ==
[~2024-03-22] VITALS: Ht 167.6 cm; Wt 75.0 kg
[2024-03-22 09:30] VITALS: BP 134/66; O2SAT 99
[~2024-03-22 09:30] MED LIST changes: -ALBUTEROL SULFATE 2.5MG/0.5ML INH NEB SOLN INH PRN; -EPINEPHrine INJ 1 MG/ML 1ML AMP IM PRN; -NS 1,000 ML IV SCH; -methylPREDNISolone 125MG 2ML VIAL IV PRN
[2024-03-22] MEDS: IMMUNE GLOBULIN 10% 20 GM in IV 1 EA IV ONE (09:44)
[2024-03-22 10:00] VITALS: BP 132/68; O2SAT 98
[2024-03-22 10:30] VITALS: BP 126/68; O2SAT 100
[2024-03-22 11:00] VITALS: BP 122/70; O2SAT 100
[2024-03-22 11:55] VITALS: BP 120/60; O2SAT 100
== END 2024-03-22 12:05 ==
LOC: M INFU 09:30
PROVIDERS: ATTEND Psychiatry & Neurology Neurology
DX: G61.81 Chronic inflammatory demyelinating polyneuritis (principal); Z88.0 Allergy status to penicillin; Z88.8 Allergy status to other drugs, medicaments and biological substances
CPT/HCPCS: 96365; 96366; J1459

== ENCOUNTER → 2024-04-04 | Outpatient (CLI) | payer MEDICARE, BC ==
[~2024-04-04] MED LIST changes: -diphenhydrAMINE 50MG/ML VIAL IV PRN
[2024-04-04 11:19] LABS: BASO # 0.1 10^3/uL (0.0-0.2); EOS # 0.1 10^3/uL (0.0-0.5); EOS % 1.2 % (0.0-3.0); HEMATOCRIT 50.5 % (42.0-52.0); HEMOGLOBIN 17.2 g/dl (13.5-17.5); LYMPH # 1.6 10^3/uL (1.5-5.0); LYMPH % 33.3 % (24.0-44.0); MEAN CORPUSCULAR HEMOGLOBIN 30.6 pg (27.0-33.0); MEAN CORPUSCULAR HGB CONC 34.1 g/dl (32.0-36.5); MEAN CORPUSCULAR VOLUME 89.7 fl (80.0-96.0); MONO # 0.4 10^3/uL (0.0-0.8); MONO % 8.1 % (2.0-8.0); NEUTROPHILS # 2.8 10^3/uL (1.5-8.5); NEUTROPHILS % 56.2 % (36.0-66.0); PLATELET COUNT, AUTOMATED 257 10^3/uL (150-450); RED BLOOD COUNT 5.63 10^6/uL (4.30-6.10); WHITE BLOOD COUNT 4.9 10^3/uL (4.0-10.0)
[2024-04-04 11:44] LABS: CREATININE, URINE 188.9 MG/DL; MALB URINE SIEMENS < 3.0 MG/L; MAU/CREAT RATIO 1.5 MCG/MG (0.0-30.0); PSA SCREENING 0.42 NG/ML (< 4.00)
[2024-04-04 11:47] LABS: C REACTIVE PROTEIN QUANTITATIV < 0.40 MG/DL (<1.0)
[2024-04-04 11:49] LABS: ALBUMIN 3.6 G/DL (3.2-5.2); ALKALINE PHOSPHATASE 88 U/L (46-116); ALT/SGPT 62 U/L (7.0-40); AST/SGOT 33 U/L (<34); BILIRUBIN,TOTAL 0.6 MG/DL (0.3-1.2); BLOOD UREA NITROGEN 18 MG/DL (9-23); CALCIUM LEVEL 9.8 MG/DL (8.3-10.6); CARBON DIOXIDE LEVEL 32 MMOL/L (20-31); CHLORIDE LEVEL 104 MMOL/L (98-107); CHOLESTEROL LEVEL 192 MG/DL (<200); CREATININE FOR GFR 0.84 MG/DL (0.70-1.30); GLOMERULAR FILTRATION RATE > 60.0 (>49); GLUCOSE, FASTING 164 MG/DL (74-106); HDL CHOLESTEROL 51.8 MG/DL (>40); LDL CHOLESTEROL 122.8 MG/DL (<100); NON-HDL-C 140.2 MG/DL; POTASSIUM SERUM 4.7 MMOL/L (3.5-5.1); SODIUM LEVEL 141 MMOL/L (136-145); THYROID STIMULATING HORMONE 2.168 uIU/ML (0.55-4.78); TOTAL 25(OH) VITAMIN D 44.3 NG/ML (20.0-100.0); TOTAL PROTEIN 7.4 G/DL (5.7-8.2); TRIGLYCERIDES LEVEL 87 MG/DL (<150)
[2024-04-04 11:50] LABS: VITAMIN B12 LEVEL 1092 PG/ML (211-911)
[2024-04-04 11:51] LABS: FREE T4 1.23 NG/DL (0.89-1.76)
[2024-04-04 12:03] LABS: HEMOGLOBIN A1c 6.7 % (4.0-6.0)
== END ==
LOC: M PLALAB 07:18
PROVIDERS: ATTEND Internal Medicine Hematology
DX: Z12.5 Encounter for screening for malignant neoplasm of prostate (principal); E07.9 Disorder of thyroid, unspecified; E78.00 Pure hypercholesterolemia, unspecified
CPT/HCPCS: 36415; 80053; 80061; 82043; 82306; 82607; 83036; 84439; 84443; 85025; 86140; G0103

== ENCOUNTER 2024-05-01 09:35 | Outpatient (CLI) | payer MEDICARE, OTHER ==
[~2024-05-01] VITALS: Ht 170.2 cm; Wt 67.3 kg
[2024-05-01 09:35] VITALS: BP 143/75; O2SAT 98
[~2024-05-01 09:35] MED LIST changes: +ALBUTEROL SULFATE 2.5MG/0.5ML INH NEB SOLN INH PRN; +EPINEPHrine INJ 1 MG/ML 1ML AMP IM PRN; +NS 1,000 ML IV SCH; +diphenhydrAMINE 50MG/ML VIAL IV PRN; +methylPREDNISolone 125MG 2ML VIAL IV PRN
[2024-05-01] MEDS: IMMUNE GLOBULIN 10% 20 GM in IV 1 EA IV ONE (09:42)
[2024-05-01 10:15] VITALS: BP 138/70; O2SAT 100
[2024-05-01 10:45] VITALS: BP 120/65; O2SAT 98
[2024-05-01 11:15] VITALS: BP 119/72; O2SAT 97
[2024-05-01 11:55] VITALS: BP 134/81; O2SAT 99
[2024-05-02] MEDS ORDERED: IMMUNE GLOBULIN 10% 20 GM in IV 1 EA IV ONE (07:30)
== END 2024-05-01 12:00 ==
LOC: M INFU 09:35
PROVIDERS: ATTEND Psychiatry & Neurology Neurology
DX: G61.81 Chronic inflammatory demyelinating polyneuritis (principal); Z88.0 Allergy status to penicillin; Z88.8 Allergy status to other drugs, medicaments and biological substances
CPT/HCPCS: 96365; 96366; J1459

== ENCOUNTER 2024-05-02 07:29 | Outpatient (CLI) | payer MEDICARE, OTHER ==
[~2024-05-02] VITALS: Ht 170.2 cm; Wt 68.0 kg
[2024-05-02 07:52] VITALS: BP 131/63; O2SAT 99
[2024-05-02] MEDS: diphenhydrAMINE 25MG IV PRIOR TO INFUSION IV ONE (07:58)
[2024-05-02] MEDS: methylPREDNISolone 125MG 2ML VIAL IV ONE (07:58)
[2024-05-02] MEDS: IMMUNE GLOBULIN 10% 20 GM in IV 1 EA IV ONE (08:08)
[2024-05-02 08:30] VITALS: BP 129/64; O2SAT 98
[2024-05-02 09:10] VITALS: BP 139/70; O2SAT 97
[2024-05-02 09:40] VITALS: BP 106/63; O2SAT 97
[2024-05-02 10:10] VITALS: BP 131/72; O2SAT 99
== END 2024-05-02 10:15 ==
LOC: M INFU 07:29
PROVIDERS: ATTEND Psychiatry & Neurology Neurology
DX: G61.81 Chronic inflammatory demyelinating polyneuritis (principal); Z88.0 Allergy status to penicillin; Z88.8 Allergy status to other drugs, medicaments and biological substances
CPT/HCPCS: 96365; 96366; J1459

== ENCOUNTER 2024-05-03 07:50 | Outpatient (CLI) | payer MEDICARE, OTHER ==
[~2024-05-03] VITALS: Ht 170.2 cm; Wt 68.0 kg
[2024-05-03 07:50] VITALS: BP 139/76; O2SAT 99
[~2024-05-03 07:50] MED LIST changes: -NS 1,000 ML IV SCH
[2024-05-03] MEDS ORDERED: diphenhydrAMINE 50MG/ML VIAL IV ONE (08:00)
[2024-05-03] MEDS ORDERED: NS 1,000 ML IV SCH (08:00)
[2024-05-03] MEDS ORDERED: methylPREDNISolone 125MG 2ML VIAL IV ONE (08:00)
[2024-05-03] MEDS: IMMUNE GLOBULIN 10% 20 GM in IV 1 EA IV ONE (08:08)
[2024-05-03 08:30] VITALS: BP 151/70; O2SAT 98
[2024-05-03 09:00] VITALS: BP 142/73; O2SAT 99
[2024-05-03 09:30] VITALS: BP 134/69; O2SAT 99
[2024-05-03 10:15] VITALS: BP 140/79; O2SAT 99
== END 2024-05-03 10:15 ==
LOC: M INFU 07:50
PROVIDERS: ATTEND Psychiatry & Neurology Neurology
DX: G61.81 Chronic inflammatory demyelinating polyneuritis (principal); Z88.0 Allergy status to penicillin; Z88.8 Allergy status to other drugs, medicaments and biological substances
CPT/HCPCS: 96365; 96366; J1459

== ENCOUNTER 2024-06-12 07:25 | Outpatient (CLI) | payer MEDICARE, OTHER ==
[~2024-06-12] VITALS: Ht 170.2 cm; Wt 67.0 kg
[2024-06-12 07:25] VITALS: BP 155/68; O2SAT 99
[~2024-06-12 07:25] MED LIST changes: +NS (Normal Saline) 0.9% 1,000 ML IV SCH
[2024-06-12] MEDS ORDERED: methylPREDNISolone 125MG 2ML VIAL IV ONE (07:30)
[2024-06-12] MEDS ORDERED: diphenhydrAMINE 50MG/ML VIAL IV ONE (07:30)
[2024-06-12] MEDS: IMMUNE GLOBULIN 10% 20 GM in IV 1 EA IV ONE (07:47)
[2024-06-12 09:00] VITALS: BP 135/79; O2SAT 100
[2024-06-12 09:30] VITALS: BP 143/72; O2SAT 100
[2024-06-12 10:15] VITALS: BP 148/71; O2SAT 100
== END 2024-06-12 10:15 | disposition home or self-care (01) ==
LOC: M INFU 07:25
PROVIDERS: ATTEND Psychiatry & Neurology Neurology
DX: G61.81 Chronic inflammatory demyelinating polyneuritis (principal); Z88.0 Allergy status to penicillin; Z88.8 Allergy status to other drugs, medicaments and biological substances
CPT/HCPCS: 96365; 96366; J1459

== ENCOUNTER 2024-06-13 07:30 | Outpatient (CLI) | payer MEDICARE, OTHER ==
[2024-06-13 07:30] VITALS: BP 160/72; O2SAT 98
[~2024-06-13 07:30] MED LIST changes: +diphenhydrAMINE 50MG/ML VIAL IV ONE; +methylPREDNISolone 125MG 2ML VIAL IV ONE
[2024-06-13] MEDS: IMMUNE GLOBULIN 10% 20 GM in IV 1 EA IV ONE (07:49)
[2024-06-13 08:30] VITALS: BP 137/72; O2SAT 99
[2024-06-13 09:00] VITALS: BP 141/74; O2SAT 100
[2024-06-13 09:55] VITALS: BP 128/71; O2SAT 99
== END 2024-06-13 09:55 ==
LOC: M INFU 07:30
PROVIDERS: ATTEND Psychiatry & Neurology Neurology
DX: G61.81 Chronic inflammatory demyelinating polyneuritis (principal); Z88.0 Allergy status to penicillin; Z88.8 Allergy status to other drugs, medicaments and biological substances
CPT/HCPCS: 96365; 96366; J1459

== ENCOUNTER 2024-06-15 07:30 | Outpatient (CLI) | payer MEDICARE, OTHER ==
[~2024-06-15] VITALS: Ht 170.2 cm; Wt 67.0 kg
[2024-06-15 07:40] VITALS: BP 140/66; O2SAT 99
[2024-06-15] MEDS: IMMUNE GLOBULIN 10% 20 GM in IV 1 EA IV ONE (08:16)
[2024-06-15 08:30] VITALS: BP 134/69; O2SAT 98
[2024-06-15 09:00] VITALS: BP 139/71; O2SAT 97
[2024-06-15 09:30] VITALS: BP 122/68; O2SAT 97
[2024-06-15 10:44] VITALS: BP 140/73; O2SAT 99
== END 2024-06-15 10:45 | disposition home or self-care (01) ==
LOC: M INFU 07:30
PROVIDERS: ATTEND Psychiatry & Neurology Neurology
DX: G61.81 Chronic inflammatory demyelinating polyneuritis (principal); Z88.0 Allergy status to penicillin; Z88.8 Allergy status to other drugs, medicaments and biological substances
CPT/HCPCS: 96365; 96366; J1459

== ENCOUNTER 2024-07-24 07:22 | Outpatient (CLI) | payer MEDICARE, OTHER ==
[~2024-07-24] VITALS: Ht 170.2 cm; Wt 68.2 kg
[~2024-07-24 07:22] MED LIST changes: -NS (Normal Saline) 0.9% 1,000 ML IV SCH; -diphenhydrAMINE 50MG/ML VIAL IV ONE; -methylPREDNISolone 125MG 2ML VIAL IV ONE
[2024-07-24 07:30] VITALS: BP 140/67; O2SAT 100
[2024-07-24] MEDS ORDERED: diphenhydrAMINE 50MG/ML VIAL IV ONE (07:30)
[2024-07-24] MEDS ORDERED: methylPREDNISolone 125MG 2ML VIAL IV ONE (07:30)
[2024-07-24] MEDS: IMMUNE GLOBULIN 10% 20 GM in IV 1 EA IV ONE (07:45)
[2024-07-24 08:29] VITALS: BP 129/63; O2SAT 98
[2024-07-24 09:39] VITALS: BP 110/68; O2SAT 67
[2024-07-24 10:15] VITALS: BP 126/62; O2SAT 99
== END 2024-07-24 10:20 ==
LOC: M INFU 07:22
PROVIDERS: ATTEND Psychiatry & Neurology Neurology
DX: G61.81 Chronic inflammatory demyelinating polyneuritis (principal); Z88.0 Allergy status to penicillin; Z88.8 Allergy status to other drugs, medicaments and biological substances
CPT/HCPCS: 96365; 96366; J1459

== ENCOUNTER 2024-07-25 07:30 | Outpatient (CLI) | payer MEDICARE, OTHER ==
[2024-07-25] MEDS: diphenhydrAMINE 50MG/ML VIAL IV ONE (08:01)
[2024-07-25] MEDS: methylPREDNISolone 125MG 2ML VIAL IV ONE (08:01)
[2024-07-25] MEDS: IMMUNE GLOBULIN 10% 20 GM in IV 1 EA IV ONE (08:01)
[2024-07-25 08:05] VITALS: BP 125/63; O2SAT 99
[2024-07-25 10:20] VITALS: BP 126/79; O2SAT 99
== END 2024-07-25 10:24 ==
LOC: M INFU 07:30
PROVIDERS: ATTEND Psychiatry & Neurology Neurology
DX: G61.81 Chronic inflammatory demyelinating polyneuritis (principal); Z88.0 Allergy status to penicillin; Z88.8 Allergy status to other drugs, medicaments and biological substances
CPT/HCPCS: 96365; 96366; J1459

== ENCOUNTER 2024-07-26 07:30 | Outpatient (CLI) | payer MEDICARE, OTHER ==
[~2024-07-26] VITALS: Ht 170.2 cm; Wt 68.0 kg
[2024-07-26 07:30] VITALS: BP 124/57; O2SAT 96
[~2024-07-26 07:30] MED LIST changes: +IMMUNE GLOBULIN 10% 10 GM in IV 1 EA IV ONE; +NS (Normal Saline) 0.9% 1,000 ML IV SCH
[2024-07-26] MEDS: IMMUNE GLOBULIN 10% 20 GM in IV 1 EA IV ONE (07:58)
[2024-07-26] MEDS: diphenhydrAMINE 25MG IV PRIOR TO INFUSION IV ONE (07:59)
[2024-07-26] MEDS: methylPREDNISolone 125MG 2ML VIAL IV ONE (07:59)
[2024-07-26 08:30] VITALS: BP 129/63; O2SAT 99
[2024-07-26 09:00] VITALS: BP 137/72; O2SAT 98
[2024-07-26 09:30] VITALS: BP 133/81; O2SAT 98
[2024-07-26 10:20] VITALS: BP 150/76; O2SAT 99
== END 2024-07-26 10:20 ==
LOC: M INFU 07:30
PROVIDERS: ATTEND Psychiatry & Neurology Neurology
DX: G61.81 Chronic inflammatory demyelinating polyneuritis (principal); Z88.0 Allergy status to penicillin; Z88.8 Allergy status to other drugs, medicaments and biological substances
CPT/HCPCS: 96365; 96366; J1459

== ENCOUNTER 2024-09-04 07:25 | Outpatient (CLI) | payer MEDICARE, OTHER ==
[~2024-09-04] VITALS: Ht 170.2 cm; Wt 65.9 kg
[~2024-09-04 07:25] MED LIST changes: -IMMUNE GLOBULIN 10% 10 GM in IV 1 EA IV ONE
[2024-09-04 07:30] VITALS: BP 137/78; O2SAT 98
[2024-09-04] MEDS ORDERED: methylPREDNISolone 125MG 2ML VIAL IV ONE (07:30)
[2024-09-04] MEDS ORDERED: diphenhydrAMINE 25MG IV PRIOR TO INFUSION IV ONE (07:30)
[2024-09-04] MEDS: IMMUNE GLOBULIN 10% 20 GM in IV 1 EA IV ONE (08:05)
[2024-09-04 08:30] VITALS: BP 125/61; O2SAT 98
[2024-09-04 09:00] VITALS: BP 122/69; O2SAT 97
[2024-09-04 09:30] VITALS: BP 120/67; O2SAT 99
[2024-09-04 10:20] VITALS: BP 118/58; O2SAT 100
== END 2024-09-04 10:20 ==
LOC: M INFU 07:25
PROVIDERS: ATTEND Psychiatry & Neurology Neurology
DX: G61.81 Chronic inflammatory demyelinating polyneuritis (principal); Z88.0 Allergy status to penicillin; Z88.8 Allergy status to other drugs, medicaments and biological substances
CPT/HCPCS: 96365; 96366; J1459

== ENCOUNTER 2024-09-05 07:25 | Outpatient (CLI) | payer MEDICARE, OTHER ==
[~2024-09-05] VITALS: Ht 170.2 cm; Wt 65.9 kg
[2024-09-05 07:25] VITALS: BP 140/67; O2SAT 98
[~2024-09-05 07:25] MED LIST changes: -NS (Normal Saline) 0.9% 1,000 ML IV SCH
[2024-09-05] MEDS ORDERED: NS (Normal Saline) 0.9% 1,000 ML IV SCH (07:30)
[2024-09-05] MEDS: diphenhydrAMINE 25MG IV PRIOR TO INFUSION IV ONE (07:37)
[2024-09-05] MEDS: methylPREDNISolone 125MG 2ML VIAL IV ONE (07:37)
[2024-09-05] MEDS: IMMUNE GLOBULIN 10% 20 GM in IV 1 EA IV ONE (07:44)
[2024-09-05 08:15] VITALS: BP 122/64; O2SAT 97
[2024-09-05 09:30] VITALS: BP 121/72; O2SAT 99
[2024-09-05 10:10] VITALS: BP 131/65; O2SAT 100
== END 2024-09-05 10:15 ==
LOC: M INFU 07:25
PROVIDERS: ATTEND Psychiatry & Neurology Neurology
DX: G61.81 Chronic inflammatory demyelinating polyneuritis (principal); Z88.0 Allergy status to penicillin; Z88.8 Allergy status to other drugs, medicaments and biological substances
CPT/HCPCS: 96365; 96366; J1459

== ENCOUNTER 2024-09-06 07:30 | Outpatient (CLI) | payer MEDICARE, OTHER ==
[~2024-09-06] VITALS: Ht 170.2 cm; Wt 65.9 kg
[2024-09-06 07:30] VITALS: BP 133/65; O2SAT 99
[~2024-09-06 07:30] MED LIST changes: +NS (Normal Saline) 0.9% 1,000 ML IV SCH; +diphenhydrAMINE 25MG IV PRIOR TO INFUSION IV ONE; +methylPREDNISolone 125MG 2ML VIAL IV ONE
[2024-09-06] MEDS: IMMUNE GLOBULIN 10% 20 GM in IV 1 EA IV ONE (08:00)
[2024-09-06 08:30] VITALS: BP 128/78; O2SAT 98
[2024-09-06 09:30] VITALS: BP 127/78; O2SAT 100
[2024-09-06 10:20] VITALS: BP 138/70; O2SAT 97
== END 2024-09-06 10:20 ==
LOC: M INFU 07:30
PROVIDERS: ATTEND Psychiatry & Neurology Neurology
DX: G61.81 Chronic inflammatory demyelinating polyneuritis (principal); Z88.0 Allergy status to penicillin; Z88.8 Allergy status to other drugs, medicaments and biological substances
CPT/HCPCS: 96365; 96366; J1459

== ENCOUNTER → 2024-09-29 | Outpatient (CLI) | payer MEDICARE, OTHER ==
[~2024-09-29] MED LIST changes: -ALBUTEROL SULFATE 2.5MG/0.5ML INH NEB SOLN INH PRN; -EPINEPHrine INJ 1 MG/ML 1ML AMP IM PRN; -NS (Normal Saline) 0.9% 1,000 ML IV SCH; -diphenhydrAMINE 25MG IV PRIOR TO INFUSION IV ONE; -diphenhydrAMINE 50MG/ML VIAL IV PRN; -methylPREDNISolone 125MG 2ML VIAL IV ONE; -methylPREDNISolone 125MG 2ML VIAL IV PRN
[2024-09-29 11:24] LABS: BASO # 0.1 10^3/uL (0.0-0.2); BASO % 1.1 % (0.0-1.0); EOS # 0.1 10^3/uL (0.0-0.5); HEMATOCRIT 47.8 % (42.0-52.0); HEMOGLOBIN 16.5 g/dl (13.5-17.5); LYMPH % 35.1 % (24.0-44.0); MEAN CORPUSCULAR HEMOGLOBIN 30.6 pg (27.0-33.0); MEAN CORPUSCULAR HGB CONC 34.5 g/dl (32.0-36.5); MEAN CORPUSCULAR VOLUME 88.7 fl (80.0-96.0); MONO # 0.5 10^3/uL (0.0-0.8); MONO % 9.3 % (2.0-8.0); NEUTROPHILS # 2.9 10^3/uL (1.5-8.5); NEUTROPHILS % 52.3 % (36.0-66.0); PLATELET COUNT, AUTOMATED 288 10^3/uL (150-450); RED BLOOD COUNT 5.39 10^6/uL (4.30-6.10); WHITE BLOOD COUNT 5.6 10^3/uL (4.0-10.0)
[2024-09-29 11:32] LABS: ALBUMIN 3.6 G/DL (3.2-5.2); ALKALINE PHOSPHATASE 74 U/L (40-129); ALT/SGPT 92 U/L (7.0-40); AST/SGOT 48 U/L (<34); BILIRUBIN,TOTAL 0.6 MG/DL (0.3-1.2); BLOOD UREA NITROGEN 15 MG/DL (9-23); CALCIUM LEVEL 8.8 MG/DL (8.3-10.6); CARBON DIOXIDE LEVEL 32 MMOL/L (20-31); CHLORIDE LEVEL 105 MMOL/L (98-107); CHOLESTEROL LEVEL 126 MG/DL (<200); CHOLESTEROL RISK RATIO 2.38 (<5); CREATININE FOR GFR 0.85 MG/DL (0.70-1.30); GLOMERULAR FILTRATION RATE > 90.0 (>49); GLUCOSE, FASTING 140 MG/DL (74-106); HDL CHOLESTEROL 52.9 MG/DL (>40); LDL CHOLESTEROL 58.3 MG/DL (<100); NON-HDL-C 73.1 MG/DL; POTASSIUM SERUM 4.3 MMOL/L (3.5-5.1); SODIUM LEVEL 143 MMOL/L (136-145); TOTAL PROTEIN 6.8 G/DL (5.7-8.2); TRIGLYCERIDES LEVEL 74 MG/DL (<150)
[2024-09-29 11:35] LABS: THYROID STIMULATING HORMONE 2.904 uIU/ML (0.55-4.78)
[2024-09-29 11:56] LABS: CREATININE, URINE 190.8 MG/DL; MAU/CREAT RATIO 1.5 MCG/MG (0.0-30.0)
== END ==
LOC: M PLALAB 07:06
PROVIDERS: ATTEND Physician Assistant
DX: E10.65 Type 1 diabetes mellitus with hyperglycemia (principal)

== ENCOUNTER 2024-10-16 07:25 | Outpatient (CLI) | payer MEDICARE, OTHER ==
[~2024-10-16] VITALS: Ht 170.2 cm; Wt 68.1 kg
[~2024-10-16 07:25] MED LIST changes: +ALBUTEROL SULFATE 2.5MG/0.5ML INH CONCENTRATE NEB SOLN INH PRN; +EPINEPHrine INJ 1 MG/ML 1ML AMP IM PRN; +NS (Normal Saline) 0.9% 1,000 ML IV SCH; +diphenhydrAMINE 50MG/ML VIAL IV PRN; +methylPREDNISolone 125MG 2ML VIAL IV PRN
[2024-10-16 07:30] VITALS: BP 142/74; O2SAT 98
[2024-10-16] MEDS ORDERED: methylPREDNISolone 125MG 2ML VIAL IV ONE (07:30)
[2024-10-16] MEDS ORDERED: diphenhydrAMINE 25MG IV PRIOR TO INFUSION IV ONE (07:30)
[2024-10-16] MEDS: IMMUNE GLOBULIN 10% 20 GM in IV 1 EA IV ONE (07:49)
[2024-10-16 08:15] VITALS: BP 139/72; O2SAT 98
[2024-10-16 08:45] VITALS: BP 131/66; O2SAT 98
[2024-10-16 09:15] VITALS: BP 138/70; O2SAT 100
[2024-10-16 10:10] VITALS: BP 140/74; O2SAT 100
== END 2024-10-16 10:10 | disposition home or self-care (01) ==
LOC: M INFU 07:25
PROVIDERS: ATTEND Psychiatry & Neurology Neurology
DX: G61.81 Chronic inflammatory demyelinating polyneuritis (principal); Z88.0 Allergy status to penicillin; Z88.8 Allergy status to other drugs, medicaments and biological substances
CPT/HCPCS: 96365; 96366; J1459

== ENCOUNTER 2024-10-17 07:28 | Outpatient (CLI) | payer MEDICARE, OTHER ==
[~2024-10-17] VITALS: Ht 170.2 cm; Wt 68.0 kg
[2024-10-17] MEDS: methylPREDNISolone 125MG 2ML VIAL IV ONE (08:03)
[2024-10-17] MEDS: diphenhydrAMINE 25MG IV PRIOR TO INFUSION IV ONE (08:03)
[2024-10-17] MEDS: IMMUNE GLOBULIN 10% 20 GM in IV 1 EA IV ONE (08:03)
[2024-10-17 08:05] VITALS: BP 141/67; O2SAT 99
[2024-10-17 08:30] VITALS: BP 127/67; O2SAT 100
[2024-10-17 09:00] VITALS: BP 135/70; O2SAT 100
[2024-10-17 09:30] VITALS: BP 140/70; O2SAT 100
[2024-10-17 10:15] VITALS: BP 135/70; O2SAT 99
== END 2024-10-17 10:15 ==
LOC: M INFU 07:28
PROVIDERS: ATTEND Psychiatry & Neurology Neurology
DX: G61.81 Chronic inflammatory demyelinating polyneuritis (principal); Z88.0 Allergy status to penicillin; Z88.8 Allergy status to other drugs, medicaments and biological substances
CPT/HCPCS: 96365; 96366; J1459

== ENCOUNTER 2024-10-18 07:30 | Outpatient (CLI) | payer MEDICARE, OTHER ==
[~2024-10-18] VITALS: Ht 170.2 cm; Wt 68.1 kg
[2024-10-18 07:30] VITALS: BP 136/64; O2SAT 94
[~2024-10-18 07:30] MED LIST changes: +diphenhydrAMINE 25MG IV PRIOR TO INFUSION IV ONE; +methylPREDNISolone 125MG 2ML VIAL IV ONE
[2024-10-18] MEDS: IMMUNE GLOBULIN 10% 20 GM in IV 1 EA IV ONE (07:54)
[2024-10-18 08:30] VITALS: BP 130/86; O2SAT 100
[2024-10-18 09:00] VITALS: BP 143/72; O2SAT 100
[2024-10-18 10:15] VITALS: BP 145/68; O2SAT 96
== END 2024-10-18 10:15 | disposition home or self-care (01) ==
LOC: M INFU 07:30
PROVIDERS: ATTEND Psychiatry & Neurology Neurology
DX: G61.81 Chronic inflammatory demyelinating polyneuritis (principal); Z88.0 Allergy status to penicillin; Z88.8 Allergy status to other drugs, medicaments and biological substances
CPT/HCPCS: 96365; 96366; J1459

== ENCOUNTER 2025-01-08 08:05 | Outpatient (CLI) | payer MEDICARE, OTHER ==
[~2025-01-08] VITALS: Ht 170.2 cm; Wt 68.2 kg
[2025-01-08 08:05] VITALS: BP 134/67; O2SAT 98
[~2025-01-08 08:05] MED LIST changes: +ALBUTEROL SULFATE 2.5 MG/0.5 ML INH CONCENTRATE NEB SOLN INH PRN; -ALBUTEROL SULFATE 2.5MG/0.5ML INH CONCENTRATE NEB SOLN INH PRN; -ALPH600C PO; +ALPH600C2 PO; -diphenhydrAMINE 25MG IV PRIOR TO INFUSION IV ONE; +diphenhydrAMINE 50 MG/ML VIAL IV ONE; +diphenhydrAMINE 50 MG/ML VIAL IV PRN; -diphenhydrAMINE 50MG/ML VIAL IV PRN; -methylPREDNISolone 125MG 2ML VIAL IV ONE; -methylPREDNISolone 125MG 2ML VIAL IV PRN
[2025-01-08] MEDS: IMMUNE GLOBULIN 10% 20 GM in IV 1 EA IV ONE (08:20)
[2025-01-08 08:50] VITALS: BP 121/76; O2SAT 100
[2025-01-08 09:20] VITALS: BP 129/72; O2SAT 100
[2025-01-08 09:50] VITALS: BP 124/78; O2SAT 100
[2025-01-08 10:40] VITALS: BP 147/75; O2SAT 99
== END 2025-01-08 10:40 ==
LOC: M INFU 08:05
PROVIDERS: ATTEND Psychiatry & Neurology Neurology
DX: G61.81 Chronic inflammatory demyelinating polyneuritis (principal); Z88.0 Allergy status to penicillin; Z88.8 Allergy status to other drugs, medicaments and biological substances
CPT/HCPCS: 96365; 96366; J1459

== ENCOUNTER 2025-01-09 08:20 | Outpatient (CLI) | payer MEDICARE, OTHER ==
[~2025-01-09] VITALS: Ht 170.2 cm; Wt 68.0 kg
[~2025-01-09 08:20] MED LIST changes: -diphenhydrAMINE 50 MG/ML VIAL IV ONE
[2025-01-09 08:30] VITALS: BP 131/66; O2SAT 99
[2025-01-09] MEDS ORDERED: diphenhydrAMINE 50 MG/ML VIAL IV ONE (08:30)
[2025-01-09] MEDS: IMMUNE GLOBULIN 10% 20 GM in IV 1 EA IV ONE (08:35)
[2025-01-09 09:15] VITALS: BP 114/62; O2SAT 98
[2025-01-09 09:45] VITALS: BP 115/68; O2SAT 98
[2025-01-09 11:15] VITALS: BP 133/70; O2SAT 98
== END 2025-01-09 11:15 ==
LOC: M INFU 08:20
PROVIDERS: ATTEND Psychiatry & Neurology Neurology
DX: G61.81 Chronic inflammatory demyelinating polyneuritis (principal); Z88.0 Allergy status to penicillin; Z88.8 Allergy status to other drugs, medicaments and biological substances
CPT/HCPCS: 96365; 96366; J1459

== ENCOUNTER 2025-01-10 07:43 | Outpatient (CLI) | payer MEDICARE, OTHER ==
[~2025-01-10] VITALS: Ht 170.2 cm; Wt 68.0 kg
[2025-01-10 08:06] VITALS: BP 127/66; O2SAT 96
[2025-01-10] MEDS: diphenhydrAMINE 50 MG/ML VIAL IV ONE (08:08)
[2025-01-10] MEDS: IMMUNE GLOBULIN 10% 20 GM in IV 1 EA IV ONE (08:13)
[2025-01-10 08:45] VITALS: BP 129/84; O2SAT 99
[2025-01-10 09:15] VITALS: BP 127/70; O2SAT 100
[2025-01-10 09:45] VITALS: BP 123/87; O2SAT 98
[2025-01-10 10:35] VITALS: BP 138/69; O2SAT 96
== END 2025-01-10 10:35 ==
LOC: M INFU 07:43
PROVIDERS: ATTEND Psychiatry & Neurology Neurology
DX: G61.81 Chronic inflammatory demyelinating polyneuritis (principal); Z88.0 Allergy status to penicillin; Z88.8 Allergy status to other drugs, medicaments and biological substances
CPT/HCPCS: 96365; 96366; J1459

== ENCOUNTER → 2025-02-07 | Outpatient (REF) | payer MEDICARE, OTHER ==
[~2025-02-07] MED LIST changes: -ALBUTEROL SULFATE 2.5 MG/0.5 ML INH CONCENTRATE NEB SOLN INH PRN; -EPINEPHrine INJ 1 MG/ML 1ML AMP IM PRN; -NS (Normal Saline) 0.9% 1,000 ML IV SCH; -diphenhydrAMINE 50 MG/ML VIAL IV PRN
== END ==
LOC: M SFHCPLAZ 08:42
PROVIDERS: ATTEND Family Medicine
DX: Z53.9 Procedure and treatment not carried out, unspecified reason (principal)

== ENCOUNTER → 2025-02-12 | Outpatient (CLI) | payer MEDICARE, OTHER ==
[2025-02-12 11:07] LABS: PLATELET COUNT, AUTOMATED 281 10^3/uL (150-450)
[2025-02-12 11:14] LABS: ALT/SGPT 70 U/L (7.0-40); AST/SGOT 46 U/L (<34); CALCIUM LEVEL 9.3 MG/DL (8.3-10.6); CARBON DIOXIDE LEVEL 32 MMOL/L (20-31); CHLORIDE LEVEL 100 MMOL/L (98-107); CHOLESTEROL LEVEL 134 MG/DL (<200); CHOLESTEROL RISK RATIO 2.45 (<5); CREATININE FOR GFR 0.86 MG/DL (0.70-1.30); GLOMERULAR FILTRATION RATE > 90.0 (>49); LDL CHOLESTEROL 60.4 MG/DL (<100); NON-HDL-C 79.4 MG/DL; POTASSIUM SERUM 4.8 MMOL/L (3.5-5.1); SODIUM LEVEL 141 MMOL/L (136-145); TRIGLYCERIDES LEVEL 95 MG/DL (<150)
[2025-02-12 11:21] LABS: ESTIMATED AVERAGE GLUCOSE 143.0 MG/DL (60-110)
[2025-02-12 11:38] LABS: CREATININE, URINE 188.0 MG/DL
[2025-02-12 11:39] LABS: MALB URINE SIEMENS < 3.0 MG/L
== END ==
LOC: M PLALAB 07:02
PROVIDERS: ATTEND Family Medicine
DX: Z00.00 Encounter for general adult medical examination without abnormal findings (principal); E10.9 Type 1 diabetes mellitus without complications

== ENCOUNTER 2025-02-21 07:06 | Outpatient (CLI) | payer MEDICARE, OTHER ==
[~2025-02-21] VITALS: Ht 170.2 cm; Wt 68.2 kg
[~2025-02-21 07:06] MED LIST changes: +ALBUTEROL SULFATE 2.5 MG/0.5 ML INH CONCENTRATE NEB SOLN INH PRN; +EPINEPHrine INJ 1 MG/ML 1ML AMP IM PRN; +diphenhydrAMINE 50 MG/ML VIAL IV PRN
[2025-02-21] MEDS: diphenhydrAMINE 50 MG/ML VIAL IV ONE (07:10)
[2025-02-21] MEDS ORDERED: NS (Normal Saline) 0.9% 1,000 ML IV SCH (07:30)
[2025-02-21] MEDS ORDERED: IMMUNE GLOBULIN 10% 40 GM in IV 1 EA IV ONE (08:00)
[2025-02-21] MEDS: IMMUNE GLOBULIN 10% 20 GM in IV 1 EA IV ONE (08:18)
[2025-02-21 08:44] VITALS: BP 137/77; O2SAT 97
[2025-02-21 09:15] VITALS: BP 133/80; O2SAT 98
[2025-02-21 09:45] VITALS: BP 140/77; O2SAT 99
[2025-02-21 10:30] VITALS: BP 147/76; O2SAT 99
== END 2025-02-21 10:35 | disposition home or self-care (01) ==
LOC: M INFU 07:06
PROVIDERS: ATTEND Psychiatry & Neurology Neurology
DX: G61.81 Chronic inflammatory demyelinating polyneuritis (principal); Z88.0 Allergy status to penicillin; Z88.8 Allergy status to other drugs, medicaments and biological substances
CPT/HCPCS: 96365; 96366; J1459

== ENCOUNTER 2025-02-22 07:21 | Outpatient (CLI) | payer MEDICARE, OTHER ==
[~2025-02-22] VITALS: Ht 170.2 cm; Wt 68.1 kg
[~2025-02-22 07:21] MED LIST changes: -ALBUTEROL SULFATE 2.5 MG/0.5 ML INH CONCENTRATE NEB SOLN INH PRN; -EPINEPHrine INJ 1 MG/ML 1ML AMP IM PRN; -diphenhydrAMINE 50 MG/ML VIAL IV PRN
[2025-02-22 07:29] VITALS: BP 144/70; O2SAT 100
[2025-02-22] MEDS ORDERED: EPINEPHrine INJ 1 MG/ML 1ML AMP IM PRN (07:30)
[2025-02-22] MEDS ORDERED: diphenhydrAMINE 50 MG/ML VIAL IV PRN (07:30)
[2025-02-22] MEDS ORDERED: NS (Normal Saline) 0.9% 1,000 ML IV SCH (07:30)
[2025-02-22] MEDS ORDERED: ALBUTEROL SULFATE 2.5 MG/0.5 ML INH CONCENTRATE NEB SOLN INH PRN (07:30)
[2025-02-22] MEDS: IMMUNE GLOBULIN 10% 20 GM in IV 1 EA IV ONE (07:47)
[2025-02-22] MEDS: diphenhydrAMINE 50 MG/ML VIAL IV ONE (07:47)
[2025-02-22 08:15] VITALS: BP 131/70; O2SAT 99
[2025-02-22 08:45] VITALS: BP 138/70; O2SAT 98
[2025-02-22 09:15] VITALS: BP 140/71; O2SAT 99
[2025-02-22 10:05] VITALS: BP 155/76; O2SAT 99
== END 2025-02-22 10:05 | disposition home or self-care (01) ==
LOC: M INFU 07:21
PROVIDERS: ATTEND Psychiatry & Neurology Neurology
DX: G61.81 Chronic inflammatory demyelinating polyneuritis (principal); Z88.0 Allergy status to penicillin; Z88.8 Allergy status to other drugs, medicaments and biological substances
CPT/HCPCS: 96365; 96366; J1459

== ENCOUNTER 2025-02-23 07:14 | Outpatient (CLI) | payer MEDICARE, OTHER ==
[~2025-02-23] VITALS: Ht 165.1 cm; Wt 68.2 kg
[~2025-02-23 07:14] MED LIST changes: +ALBUTEROL SULFATE 2.5 MG/0.5 ML INH CONCENTRATE NEB SOLN INH PRN; +EPINEPHrine INJ 1 MG/ML 1ML AMP IM PRN; +NS (Normal Saline) 0.9% 1,000 ML IV SCH; +diphenhydrAMINE 50 MG/ML VIAL IV PRN
[2025-02-23 07:15] VITALS: BP 128/68; O2SAT 98
[2025-02-23] MEDS ORDERED: diphenhydrAMINE 50 MG/ML VIAL IV ONE (07:30)
[2025-02-23] MEDS: IMMUNE GLOBULIN 10% 20 GM in IV 1 EA IV ONE (08:18)
[2025-02-23 08:45] VITALS: BP 140/79; O2SAT 98
[2025-02-23 09:15] VITALS: BP 131/65; O2SAT 99
[2025-02-23 09:45] VITALS: BP 144/71; O2SAT 99
[2025-02-23 10:23] VITALS: BP 146/76; O2SAT 100
== END 2025-02-23 10:30 | disposition home or self-care (01) ==
LOC: M INFU 07:14
PROVIDERS: ATTEND Psychiatry & Neurology Neurology
DX: G61.81 Chronic inflammatory demyelinating polyneuritis (principal); Z88.0 Allergy status to penicillin; Z88.8 Allergy status to other drugs, medicaments and biological substances
CPT/HCPCS: 96365; 96366; J1459

== ENCOUNTER 2025-04-04 07:15 | Outpatient (CLI) | payer MEDICARE, OTHER ==
[~2025-04-04] VITALS: Ht 170.2 cm; Wt 69.0 kg
[~2025-04-04 07:15] MED LIST changes: -NS (Normal Saline) 0.9% 1,000 ML IV SCH
[2025-04-04] MEDS ORDERED: ACETAMINOPHEN 650 MG PO ONE (07:30)
[2025-04-04] MEDS ORDERED: diphenhydrAMINE 50 MG/ML VIAL IV ONE (07:30)
[2025-04-04] MEDS ORDERED: NS (Normal Saline) 0.9% 1,000 ML IV SCH (07:30)
[2025-04-04 07:37] VITALS: BP 151/71; O2SAT 96
[2025-04-04] MEDS: IMMUNE GLOBULIN 10% 20 GM in IV 1 EA IV ONE (08:00)
[2025-04-04 08:30] VITALS: BP 151/65; O2SAT 99
[2025-04-04 09:00] VITALS: BP 134/68; O2SAT 99
[2025-04-04 09:30] VITALS: BP 139/70; O2SAT 98
[2025-04-04 10:19] VITALS: BP 155/74; O2SAT 96
== END 2025-04-04 10:20 | disposition home or self-care (01) ==
LOC: M INFU 07:15
PROVIDERS: ATTEND Psychiatry & Neurology Neurology
DX: G61.81 Chronic inflammatory demyelinating polyneuritis (principal); Z88.0 Allergy status to penicillin; Z88.8 Allergy status to other drugs, medicaments and biological substances
CPT/HCPCS: 96365; 96366; J1459

== ENCOUNTER 2025-04-05 07:45 | Outpatient (CLI) | payer MEDICARE, OTHER ==
[~2025-04-05] VITALS: Ht 170.2 cm; Wt 69.0 kg
[2025-04-05 07:45] VITALS: BP 137/80; O2SAT 96
[~2025-04-05 07:45] MED LIST changes: +NS (Normal Saline) 0.9% 1,000 ML IV SCH
[2025-04-05] MEDS: IMMUNE GLOBULIN 10% 20 GM in IV 1 EA IV ONE (07:56)
[2025-04-05] MEDS ORDERED: diphenhydrAMINE 50 MG/ML VIAL IV ONE (08:00)
[2025-04-05 08:30] VITALS: BP 139/86; O2SAT 100
[2025-04-05 09:00] VITALS: BP 127/71; O2SAT 99
[2025-04-05 09:30] VITALS: BP 130/64; O2SAT 96
[2025-04-05 10:25] VITALS: BP 139/67; O2SAT 97
== END 2025-04-05 10:45 ==
LOC: M INFU 07:45
PROVIDERS: ATTEND Psychiatry & Neurology Neurology
DX: G61.81 Chronic inflammatory demyelinating polyneuritis (principal); Z88.0 Allergy status to penicillin; Z88.8 Allergy status to other drugs, medicaments and biological substances
CPT/HCPCS: 96365; 96366; J1459

== ENCOUNTER 2025-04-06 07:40 | Outpatient (CLI) | payer MEDICARE, OTHER ==
[~2025-04-06] VITALS: Ht 170.2 cm; Wt 68.0 kg
[2025-04-06 07:40] VITALS: BP 136/62; O2SAT 98
[~2025-04-06 07:40] MED LIST changes: +diphenhydrAMINE 50 MG/ML VIAL IV ONE
[2025-04-06] MEDS: IMMUNE GLOBULIN 10% 20 GM in IV 1 EA IV ONE (07:56)
[2025-04-06 09:00] VITALS: BP 126/65; O2SAT 100
[2025-04-06 10:05] VITALS: BP 139/69; O2SAT 100
== END 2025-04-06 10:05 | disposition home or self-care (01) ==
LOC: M INFU 07:40
PROVIDERS: ATTEND Psychiatry & Neurology Neurology
DX: G61.81 Chronic inflammatory demyelinating polyneuritis (principal); Z88.0 Allergy status to penicillin; Z88.8 Allergy status to other drugs, medicaments and biological substances
CPT/HCPCS: 96365; 96366; J1459

== ENCOUNTER 2025-05-23 07:50 | Outpatient (CLI) | payer MEDICARE, OTHER ==
[~2025-05-23] VITALS: Ht 170.2 cm; Wt 66.7 kg
[~2025-05-23 07:50] MED LIST changes: -NS (Normal Saline) 0.9% 1,000 ML IV SCH; -ROSU10TA61 PO; +ROSU10TA90 PO; -diphenhydrAMINE 50 MG/ML VIAL IV ONE
[2025-05-23] MEDS ORDERED: NS (Normal Saline) 0.9% 1,000 ML IV SCH (08:00)
[2025-05-23 08:15] VITALS: BP 137/70; O2SAT 99
[2025-05-23] MEDS: diphenhydrAMINE 50 MG/ML VIAL IV ONE (08:29)
[2025-05-23] MEDS: IMMUNE GLOBULIN 10% 20 GM in IV 1 EA IV ONE (08:31)
[2025-05-23 09:00] VITALS: BP 129/76; O2SAT 99
[2025-05-23 09:30] VITALS: BP 128/71; O2SAT 98
[2025-05-23 10:50] VITALS: BP 126/77; O2SAT 100
== END 2025-05-23 11:10 | disposition home or self-care (01) ==
LOC: M INFU 07:50
PROVIDERS: ATTEND Psychiatry & Neurology Neurology
DX: G61.81 Chronic inflammatory demyelinating polyneuritis (principal); Z88.0 Allergy status to penicillin; Z88.8 Allergy status to other drugs, medicaments and biological substances
CPT/HCPCS: 96365; 96366; J1459

== ENCOUNTER 2025-05-24 07:45 | Outpatient (CLI) | payer MEDICARE, OTHER ==
[2025-05-24 07:45] VITALS: BP 145/67; O2SAT 99
[2025-05-24] MEDS: diphenhydrAMINE 50 MG/ML VIAL IV ONE (07:57)
[2025-05-24] MEDS: IMMUNE GLOBULIN 10% 20 GM in IV 1 EA IV ONE (07:57)
[2025-05-24 08:30] VITALS: BP 132/65; O2SAT 99
[2025-05-24 09:00] VITALS: BP 149/86; O2SAT 99
[2025-05-24 09:30] VITALS: BP 133/73; O2SAT 99
[2025-05-24 10:20] VITALS: BP 149/78; O2SAT 98
== END 2025-05-24 10:25 ==
LOC: M INFU 07:45
PROVIDERS: ATTEND Psychiatry & Neurology Neurology
DX: G61.81 Chronic inflammatory demyelinating polyneuritis (principal); Z88.0 Allergy status to penicillin; Z88.8 Allergy status to other drugs, medicaments and biological substances
CPT/HCPCS: 96365; 96366; J1459

== ENCOUNTER 2025-05-25 07:55 | Outpatient (CLI) | payer MEDICARE, OTHER ==
[~2025-05-25] VITALS: Ht 172.7 cm; Wt 66.8 kg
[2025-05-25] MEDS: diphenhydrAMINE 50 MG/ML VIAL IV ONE (07:52)
[2025-05-25] MEDS: IMMUNE GLOBULIN 10% 20 GM in IV 1 EA IV ONE (07:56)
[2025-05-25 08:02] VITALS: BP 150/69; O2SAT 95
[2025-05-25 08:30] VITALS: BP 122/62; O2SAT 100
[2025-05-25 09:00] VITALS: BP 130/74; O2SAT 100
[2025-05-25 09:30] VITALS: BP 137/66; O2SAT 98
[2025-05-25 10:15] VITALS: BP 142/81; O2SAT 100
== END 2025-05-25 10:10 ==
LOC: M INFU 07:55
PROVIDERS: ATTEND Psychiatry & Neurology Neurology
DX: G61.81 Chronic inflammatory demyelinating polyneuritis (principal); Z88.0 Allergy status to penicillin; Z88.8 Allergy status to other drugs, medicaments and biological substances
CPT/HCPCS: 96365; 96366; J1459